=== PATIENT | male | born 1955 | race Caucasian/White ===

== ENCOUNTER → 2024-07-17 18:15 | Outpatient (REF) | payer MEDICARE, OTHER, SELFPAY | LOC: MRI 3T 18:15 | PROVIDERS: ATTENDING PHYSICIAN Urology; FAMILY PHYSICIAN Family Medicine | DX: R97.20 Elevated prostate specific antigen [PSA] (principal) | CPT/HCPCS: 72197; A9575 ==

== ENCOUNTER → 2024-07-19 13:05 | Outpatient (REF) | payer MEDICARE, OTHER, SELFPAY | LOC: CLAB 13:05 | PROVIDERS: ATTENDING PHYSICIAN Urology | DX: R97.20 Elevated prostate specific antigen [PSA] (principal) | CPT/HCPCS: 88305 ==

== ENCOUNTER 2024-08-04 12:43 | Inpatient (IN) | payer MEDICARE, OTHER, SELFPAY ==
[2024-08-04] VITALS (7 sets, daily range): BP systolic 74–141; BP diastolic 56–94; BMI 32.6
--- NOTE | 2024-08-04 07:47 | ED.GENMED ---
Addendum entered and electronically signed by Prince Joseph DO 08/04/24 09:27:
aed from police, looks like VF
Original Note:
History of Present Illness
<GÓMEZ Pa - Last Filed: 08/04/24 07:48>
General
Chief Complaint: CODE
Time Seen by Provider: 08/04/24 07:59
<Prince Joseph DO - Last Filed: 08/04/24 09:07>
General
Source: patient, ambulance crew and witness
Exam Limitations: clinical condition
Nursing documentation reviewed up to this point in time: agreed with
History of Present Illness
History of Present Illness:
Late entry seen immediately upon presentation
68-year-old male asthmatic diabetic from [facility] lives with a local family apparently had some jaw pain went to a family member who is an ICU nurse became diaphoretic had arrest, CPR started immediately EMS was called ACLS began apparently had
numerous rounds of epi shocks for VT magnesium for possible torsades
Brought to the ER with return of spontaneous circulation EKG showed artifact with lateral ST segment elevation STEMI alert was called
Review of Systems
<Prince Joseph DO - Last Filed: 08/04/24 09:07>
Review of Systems
Unable to obtain full review of systems at this time due to: intubated
Other source history: ambulance crew
All Other Systems: Not applicable
Phy Exam
<Prince Joseph DO - Last Filed: 08/04/24 09:07>
Physical Exam
Physical Exam:
Physical Exam
General: 68 male overbreathing ventilator
Neck: Pupils 2-3 of
Heart: Regular
Lungs: Equal breath
Abdomen: Soft
Neuro: Overbreathing ventilator not following commands
Skin: no rash
Psychiatric: Unable
Extremities: No edema
Course
<GÓMEZ Pa - Last Filed: 08/04/24 07:48>
Orders/Labs/Results
Orders:
Orders
08/04/24 07:43
EKG [Electrocardiogram (*1)] Stat
Reason for Study: Chest Pain
EKG- Treatment ONCE
08/04/24 07:46
Cardiac Monitoring- Treatment ONCE
IV Insert/Care/Rem.- Treatment PRN
O2 Therapy [RESP] Urgent
Titrate/Wean O2 to maintain O2 sat greater than (%): 93
Special Instructions: TO MAINTAIN CONTINUOUS O2 SATS >/= 93%
Pulse Ox/cont/shift [RESP] Urgent
Quantity: 1
Special Instructions: continuous pulse ox
08/04/24 07:48
Complete Blood Count/With Diff Urgent
Lactic Acid Stat
Comment: WITH 1ST SET OF BLOOD CULTURES,CANCEL 2ND LACTIC ACID IF FIRST <2
08/04/24 07:50
Aspirin 300 mg RECTAL NOW STA
08/04/24 07:52
CXR Port [CR Chest Portable - 1 View] Urgent
Comment:
Reason For Exam: cardiac arrest s/p intubation
Reason Study Needs to be Portable: Patient Unstable
08/04/24 07:54
CT Head W/o Iv Contrast Urgent
Comment:
Reason For Exam: code
Arterial Blood Gas Urgent
%Oxygen/Room Air: 100
08/04/24 07:57
Propofol 1,000,000 Mcg/100 ml [Diprivan] 1,000,000 mcg in 100 ml .ROUTE .STK-MED
08/04/24 08:00
Triglycerides Routine
Comment: baseline levels with propofol infusion
Amiodarone [Cordarone] 900 mg DEXTROSE 5% PVC-free BAG [D5W PVC-free BAG] 500 ml IV PER PROTOCOL
Initial Dose in mg/min:: 1
Duration of initial dose (hours):: 6
Subsequent dose in mg/min:: 0.5
Duration of subsequent dose (hours):: 18
Maximum dose in mg/min:: 1
Hold and notify provider if:: Heart rate < 60 BPM or SBP < 90 mmHg or MAP < 60 mmHg
Heparin 4,000 units IV NOW STA
Propofol 1,000,000 Mcg/100 ml [Diprivan] 1,000,000 mcg in 100 ml IV NOW
Indication:: Light Sedation
Begin Infusion:: Now
Goal:: RASS 0 to -2
Maximum dose in mcg/kg/min:: 50
Initial dose based on RASS:: Yes
If RASS is:: +1 or pt hemodynamically unstable (SBP < 90mmHg), initiate at 10 mcg/kg/min
If RASS is:: +2, initiate at 20 mcg/kg/min
If RASS is:: greater than or equal to +3, initiate at 30 mcg/kg/min
Titration Instructions:: Titrate by 5-10 mcg/kg/min every 5 minutes until RASS 0 to -2 achieved.
Taper Instructions:: If RASS is at or below goal for 4 consecutive hours decrease infusion by
Taper Instructions:: 5-10 mcg/kg/min every 2 hours to off.
Over-sedation Instructions:: If CPOT 0-2 (at goal) AND RASS -3 to -5 (below goal) decrease sedative by
Over-sedation Instructions:: 50% first. If pain score remains at goal and RASS remains below goal in
Over-sedation Instructions:: 1 hour, decrease opioid infusion by 50%.
Notify provider:: immediately if patient exhibits signs/symptoms of propofol-related
Notify provider:: infusion syndrome.
Additional Instructions:: Patient MUST be mechanically ventilated and MUST receive analgesia.
08/04/24 08:01
ABG [Arterial Blood Gas] Stat
%Oxygen/Room Air: 100
08/04/24 08:08
Comprehensive Metabolic Panel Urgent
NT-proBNP Urgent
Troponin I Urgent
08/04/24 08:20
Heparin 1000 Units/500 ml [Heparin] 1,000 units in 500 ml .ROUTE .STK-MED
Heparin Sodium,Porcine/Ns/Pf [Heparin 2000 Units/1000 ml] 2,000 unit in 1,000 ml .ROUTE .STK-MED
Lidocaine HCl/Pf [Xylocaine-Mpf 1% Vial] 50 mg .ROUTE .STK-MED ONE
Nitroglycerin [Tridil] 1,500 mcg .ROUTE .STK-MED ONE
Verapamil Injectable [Isoptin/Verapamil Injection] 5 mg .ROUTE .STK-MED ONE
08/04/24 08:27
Lidocaine Bolus 100 mg [Xylocaine Bolus 100 mg] 200 mg .ROUTE .STK-MED ONE
08/04/24 08:38
Propofol [Diprivan] 20 ml .ROUTE .STK-MED
08/05/24 08:00
Polyethylene Glycol Powder [Miralax] 17 grams TUBE DAILY
Abnormal Lab Results
08/04/24 08/04/24
07:47 07:48
Plt Count 112 L 10^3/uL
(130-400)
Abs Immat Gran (auto) 0.4 H 10^3/uL
(0-0.05)
Absolute Lymphs (auto) 5.0 H 10^3/uL
(1.2-3.4)
Immature Gran % 4.2 H %
(0-0.5)
Neutrophils % 28.8 L %
(42.2-75.2)
Lymphocytes % 59.8 H %
(20.5-51.1)
Lactic Acid 9.9 H* mmol/L
(0.7-2.0)
POC Glucose 266 H mg/dl
(70-99)
08/04/24 07:48
Vital Signs
Initial and Last Documented VS:
Initial Vital Signs
Pulse Resp BP
59 22 141/94
08/04/24 07:48 08/04/24 07:48 08/04/24 07:48
Last Documented Vital Signs
Temp Pulse Resp BP Pulse Ox
98.5 F 91 27 104/56 95
08/04/24 07:53 08/04/24 08:38 08/04/24 08:38 08/04/24 08:38 08/04/24 08:38
<Prince Joseph, - Last Filed: 08/04/24 09:07>
Orders/Labs/Results
Orders:
Orders
08/04/24 07:43
EKG [Electrocardiogram (*1)] Stat
Reason for Study: Chest Pain
EKG- Treatment ONCE
08/04/24 07:46
Cardiac Monitoring- Treatment ONCE
IV Insert/Care/Rem.- Treatment PRN
O2 Therapy [RESP] Urgent
Titrate/Wean O2 to maintain O2 sat greater than (%): 93
Special Instructions: TO MAINTAIN CONTINUOUS O2 SATS >/= 93%
Pulse Ox/cont/shift [RESP] Urgent
Quantity: 1
Special Instructions: continuous pulse ox
08/04/24 07:48
Complete Blood Count/With Diff Urgent
Lactic Acid Stat
Comment: WITH 1ST SET OF BLOOD CULTURES,CANCEL 2ND LACTIC ACID IF FIRST <2
08/04/24 07:50
Aspirin 300 mg RECTAL NOW STA
08/04/24 07:52
CXR Port [CR Chest Portable - 1 View] Urgent
Comment:
Reason For Exam: cardiac arrest s/p intubation
Reason Study Needs to be Portable: Patient Unstable
08/04/24 07:54
CT Head W/o Iv Contrast Urgent
Comment:
Reason For Exam: code
Arterial Blood Gas Urgent
%Oxygen/Room Air: 100
08/04/24 07:57
Propofol 1,000,000 Mcg/100 ml [Diprivan] 1,000,000 mcg in 100 ml .ROUTE .STK-MED
08/04/24 08:00
Triglycerides Routine
Comment: baseline levels with propofol infusion
Amiodarone [Cordarone] 900 mg DEXTROSE 5% PVC-free BAG [D5W PVC-free BAG] 500 ml IV PER PROTOCOL
Initial Dose in mg/min:: 1
Duration of initial dose (hours):: 6
Subsequent dose in mg/min:: 0.5
Duration of subsequent dose (hours):: 18
Maximum dose in mg/min:: 1
Hold and notify provider if:: Heart rate < 60 BPM or SBP < 90 mmHg or MAP < 60 mmHg
Heparin 4,000 units IV NOW STA
Propofol 1,000,000 Mcg/100 ml [Diprivan] 1,000,000 mcg in 100 ml IV NOW
Indication:: Light Sedation
Begin Infusion:: Now
Goal:: RASS 0 to -2
Maximum dose in mcg/kg/min:: 50
Initial dose based on RASS:: Yes
If RASS is:: +1 or pt hemodynamically unstable (SBP < 90mmHg), initiate at 10 mcg/kg/min
If RASS is:: +2, initiate at 20 mcg/kg/min
If RASS is:: greater than or equal to +3, initiate at 30 mcg/kg/min
Titration Instructions:: Titrate by 5-10 mcg/kg/min every 5 minutes until RASS 0 to -2 achieved.
Taper Instructions:: If RASS is at or below goal for 4 consecutive hours decrease infusion by
Taper Instructions:: 5-10 mcg/kg/min every 2 hours to off.
Over-sedation Instructions:: If CPOT 0-2 (at goal) AND RASS -3 to -5 (below goal) decrease sedative by
Over-sedation Instructions:: 50% first. If pain score remains at goal and RASS remains below goal in
Over-sedation Instructions:: 1 hour, decrease opioid infusion by 50%.
Notify provider:: immediately if patient exhibits signs/symptoms of propofol-related
Notify provider:: infusion syndrome.
Additional Instructions:: Patient MUST be mechanically ventilated and MUST receive analgesia.
08/04/24 08:01
ABG [Arterial Blood Gas] Stat
%Oxygen/Room Air: 100
08/04/24 08:08
Comprehensive Metabolic Panel Urgent
NT-proBNP Urgent
Troponin I Urgent
08/04/24 08:20
Heparin 1000 Units/500 ml [Heparin] 1,000 units in 500 ml .ROUTE .STK-MED
Heparin Sodium,Porcine/Ns/Pf [Heparin 2000 Units/1000 ml] 2,000 unit in 1,000 ml .ROUTE .STK-MED
Lidocaine HCl/Pf [Xylocaine-Mpf 1% Vial] 50 mg .ROUTE .STK-MED ONE
Nitroglycerin [Tridil] 1,500 mcg .ROUTE .STK-MED ONE
Verapamil Injectable [Isoptin/Verapamil Injection] 5 mg .ROUTE .STK-MED ONE
08/04/24 08:27
Lidocaine Bolus 100 mg [Xylocaine Bolus 100 mg] 200 mg .ROUTE .STK-MED ONE
08/04/24 08:38
Propofol [Diprivan] 20 ml .ROUTE .STK-MED
08/05/24 08:00
Polyethylene Glycol Powder [Miralax] 17 grams TUBE DAILY
Abnormal Lab Results
08/04/24 08/04/24
07:47 07:48
Plt Count 112 L 10^3/uL
(130-400)
Abs Immat Gran (auto) 0.4 H 10^3/uL
(0-0.05)
Absolute Lymphs (auto) 5.0 H 10^3/uL
(1.2-3.4)
Immature Gran % 4.2 H %
(0-0.5)
Neutrophils % 28.8 L %
(42.2-75.2)
Lymphocytes % 59.8 H %
(20.5-51.1)
Lactic Acid 9.9 H* mmol/L
(0.7-2.0)
POC Glucose 266 H mg/dl
(70-99)
08/04/24 07:48
Vital Signs
Initial and Last Documented VS:
Initial Vital Signs
Pulse Resp BP
59 22 141/94
08/04/24 07:48 08/04/24 07:48 08/04/24 07:48
Last Documented Vital Signs
Temp Pulse Resp BP Pulse Ox
98.5 F 91 27 104/56 95
08/04/24 07:53 08/04/24 08:38 08/04/24 08:38 08/04/24 08:38 08/04/24 08:38
<Prince Joseph, DO - Last Filed: 08/04/24 09:07>
MDM/Problems Addressed
Differential Diagnosis Includes:
STEMI with VT arrest primary arrhythmia VT scar thoracic dissection PE conceivable
MDM/Problems Addressed:
Cardiac arrest
Chronic conditions affecting care: DM and Asthma
Acute Exacerbation and/or Progression of Chronic Illness: DM and Asthma
<Prince Joseph, DO - Last Filed: 08/04/24 09:07>
*Radiology
Radiology exam reviewed: preliminary read by ED provider and radiology read reviewed (too deep)
*Pulse Oximetry
Patient hypoxic: no
*EKG
Interpreted by ED Provider?: Yes
Interpretation: abnormal
Comparison EKG: no comparison EKG present
Heart Rate: 78
Rate: normal
Rhythm: sinus
Ischemia: ST elevation
*Tobacco Checkout Clerk Interpretation
Rate: normal
Interpretation: normal
Heart Rate: 78
Rhythm: sinus
*Critical Care Note
Total Time (30-74mins, 75-104mins- exclusive of procedures): 76
Data Reviewed
Source: family and ambulance crew
Prescriptions/Medications Considered But Not Given:
tnk
Further Testing Considered But Not Given:
echo
<Prince Joseph DO - Last Filed: 08/04/24 09:07>
Update Note
Update Note:
CRITICAL CARE STATEMENT: A total of 76 minutes of critical care time was provided for this patient. This includes management of unstable vital signs, evaluation of the patient at bedside, reviewing the patient's pertinent medical records discussion
with EMS providers and patient's family in addition to discussion with consultants, review of old EKGs and review of pertinent medical records. This time with separate from time utilized to perform the aforementioned documented procedures
Numerous reevaluations cardiology interventional cardiology, CT surgery at bedside, venous and arterial access obtained, was defibrillated a few times, started on pressors and antiarrhythmics, went to CT scan,
Family updated, patient to Rn Staff in critical condition he did appear to be moving all extremities prior to leaving the ER
ED Attending Note
<GMÓEZ Pa - Last Filed: 08/04/24 07:48>
-
Portions of this chart may have been created with voice recognition software.� Occasional wrong word or��sound alike� substitutions may have occurred due to the inherent limitations of voice recognition software.
Discharge Plan
Departure
Patient Disposition: Admit
Date of Disposition: 08/04/24
Time of Disposition: 08:43
Admit to: labeling machine operator
Presentation/result/management discussed w/ accepting MD/DO: cardiology/icu/Ct surgery
Patient with high blood pressure during this ER visit?: No
Condition: Critical
Covid-19: Not Applicable
Discharge Problem:
Cardiac arrest
Prescriptions:
No Action
Ozempic
SC WEEKLY
enalapril maleate
PO
hydrochlorothiazide
PO
Referrals:
UNKNOWN - PT NOT,INTERVIEWE [Family Provider] -
Discharge Date and Time
Print Language: MALAY
[2024-08-04 07:48] LABS: Glucose - Point of Care 266 mg/dl (70-99)
[2024-08-04] MEDS: ASPIRIN 300 MG RECTAL (07:51)
[2024-08-04 08:06] LABS: Hematocrit 48.5 % (39.0-52.0); Hemoglobin 16.2 g/dL (13.0-18.0); Mean Corp Hgb Conc. 33.4 g/dL (33.0-37.0); Mean Corpuscular Hgb 29.4 pg (27.0-31.0); Red Blood Cell Count 5.51 10^6/uL (4.70-6.10); Red Cell Dist. Width 14.3 % (11.5-14.5); White Blood Cell Count 8.4 10^3/uL (4.8-10.8)
[2024-08-04] MEDS: CORDARONE 518 MG IV (08:09)
[2024-08-04] MEDS: DIPRIVAN 100 IV ×2 (08:10→15:23)
[2024-08-04 08:17] LABS: Lactic Acid 9.9 mmol/L (0.7-2.0)
[2024-08-04 08:39] LABS: % Basophils 0.4 % (0-2); % Eosinophils 2.6 % (0-6); % Immature Granulocytes 4.2 % (0-0.5); % Lymphocytes 59.8 % (20.5-51.1); % Monocytes 4.2 % (1.7-9.3); % Neutrophils 28.8 % (42.2-75.2); Absolute Eosinophils 0.2 10^3/uL (0-0.7); Absolute Immature Granulocytes 0.4 10^3/uL (0-0.05); Absolute Monocytes 0.4 10^3/uL (0.1-0.6); Absolute Neutrophils 2.4 10^3/uL (1.4-6.5); Mean Platelet Volume 10.3 fL (7.4-10.4); Nucleated Red Blood Cells % 0.4 % (-); Platelet Count 112 10^3/uL (130-400)
--- NOTE | 2024-08-04 08:46 | CON.CAR ---
Addendum entered and electronically signed by Wade Recinos MD 08/04/24 12:14:
Labs reviewed with initial creatinine of 1.7 as well as a lactic acid of 3.3 and a troponin of 2.6. His potassium was also noted to be 3.3. Will have to follow his urine output closely and consider Arndt catheter to monitor urine output and will
order labs for the morning and for 4:00 this afternoon. Given his baseline renal insufficiency as well as receiving intravenous dye for his LAD stent and obtuse marginal stent I did speak with Dr. Delgadillo from nephrology and asked him to consult on Mr.
Keeping to help guide us with management. Obviously has consultants we will defer to critical care medicine and internal medicine regarding his overall care and management. We will follow closely with you. Hopefully with perfusion restored and
Impella support we can follow urine output and he will have stable renal function. Also discussed findings from the interventional procedure with critical care and they will assist us in managing his ventilatory dependence.
Addendum entered and electronically signed by Wade Recinos MD 08/04/24 11:55:
Discussed interventional findings with Dr. Besaley. He had a flush occlusion of the LAD in its midportion right at the takeoff of multiple septal branches. He also had a subtotal occlusion of a moderate-sized obtuse marginal. Reviewed the V.-Gram
findings as well with IC. Status post stenting to the LAD and the obtuse marginal and given relative hypotension post stenting there will be consideration of Impella support for period of time plus stenting. He is now electrically stable.
Original Note:
Consultation
Consultation Request
Date/Time Consultation Requested: August 04, 2024
Date/Time Consultation Performed: August 04, 2024
Requesting Provider: Jorje
Performing Provider: Opal
Reason for Consultation: Cardiac arrest
Medical History
-
Chief Complaint: Cardiac arrest
History of Present Illness:
68-year-old male who was met in the trauma bay in the middle of cardiac arrest. He had ventricular fibrillation x 2 with congregation of sinus rhythm and spontaneous circulation. I met him when he was intubated and sedated. I did meet his 2 family
friends in the trauma bay. History is limited. ECG demonstrates underlying atrial fibrillation with wide QRS and nonspecific ST-T changes and it is unclear whether he was having chest related symptoms. His rhythm has quieted on IV amiodarone and
IV lidocaine with 2 sequential boluses of lidocaine with a blood pressure of 89/46 on dopamine to 15. I was also met at the bedside with Dr. Foster and Dr. Hendricks who are placing venous and arterial access in the right femoral vein and left femoral
artery under ultrasound guidance. I discussed with Dr. Foster transfer to the cardiac catheterization lab to define the coronary anatomy. He was overbreathing the vent although it is unclear what his mental status is at the time of evaluation.
Past Medical History
Past Medical History: Arrhythmias and CAD
Social History
Tobacco: Smoker
Alcohol: None
Drug: Other
Personal: Other
Living: With Family
Employment: Other
Family History
Family History: Reviewed & Not Pertinent
Allergies / Home Medications
Allergy/AdvReac Type Severity Reaction Status Date / Time
No Known Allergies Allergy Unverified 08/04/24 07:53
�Medication �Instructions �Recorded �Confirmed �Type
Ozempic units SC WEEKLY 08/04/24 History
enalapril maleate PO 08/04/24 History
hydrochlorothiazide mg PO 08/04/24 History
Review of Systems
-
Unable to obtain full review of systems at this time due to: Patient Intubation
Physical Exam
Vital Signs
Temp Pulse Resp BP Pulse Ox
98.5 F 91 27 104/56 95
08/04/24 07:53 08/04/24 08:38 08/04/24 08:38 08/04/24 08:38 08/04/24 08:38
Lab Results
08/04/24 07:48
Troponin I Cancelled 08/04/24 07:48
[id number] Pept Cancelled 08/04/24 07:48
Physical Exam
General: Well Developed and Well Nourished
HEENT: Normocephalic
Respiratory: Crackles
Cardiac: Irregular Rhythm
Breast: Deferred by me
GI: Soft and Non Tender
Rectal: Deferred by Provider
Musculoskeletal: No Clubbing and No Cyanosis
Skin: Warm and Dry
Neuro: Other
Hematologic/Lymphatic: No Lymphadenopathy
Psych: Other
Impression / Plan
-
Impression:
Cardiac arrest
Ventricular fibrillation
IVCD on ECG
Underlying atrial fibrillation on telemetry
Presumed myocardial infarction with ST-T changes inferolaterally although in the setting of a wide QRS
Intubated
Sedated
History of hypertension
History of Ozempic therapy
Recommendations:
Discussed with his family friends at bedside and with the responding team the need for immediate evaluation of his coronary anatomy. He does have a heart rate in the 90s to 100s on IV amiodarone and IV lidocaine with a stable blood pressure on
dopamine and as such I felt stable to move to the cardiac catheterization suite for evaluation of his anatomy. His neurostatus is unclear and I will have to find out his downtime with regards to consideration for cooling protocol.
Further plan to be delineated pending coronary findings. If indeed his ventricular fibrillation is in the setting of coronary occlusion goal would be to restore spontaneous circulation of the coronary artery soon as possible and Dr. Foster is at
the bedside and taken the patient to cardiac catheterization laboratory.
Data Reviewed
-
EKG: Tracing Personally Visualized and interpreted
Labs: Labs Reviewed by me
Critical Care Time (in minutes): 45 minutes of critical care time were spent in the trauma bay in the emerge
[2024-08-04 10:05] LABS: B.E. -10.3 mmol/L; HCO3 18.3 mmol/L (21-28); PCO2 49 mmHg (35-48); PO2 144 mmHg (83-108)
[2024-08-04 10:07] LABS: O2 Therapy AC18/500/100%/+5
[2024-08-04 10:09] LABS: pH 7.18 (7.35-7.45)
[2024-08-04 10:29] LABS: Blood Urea Nitrogen 29 mg/dl (9-20); Calcium 8.6 mg/dl (8.4-10.2); Carbon Dioxide 15 mmol/L (22-30); Chloride 96 mmol/L (98-107); Estimated Creatinine Clearance 51 ml/min; Glucose 377 mg/dl (70-99); Sodium 135 mmol/L (135-145); eGFR 43.64
[2024-08-04 10:49] LABS: Potassium 3.3 mmol/L (3.5-5.1)
[2024-08-04 10:51] LABS: NT-proBNP 192 pg/ml
--- NOTE | 2024-08-04 11:35 | CONSULT.CT ---
Consultation
-
Requesting Provider: Eduardo Foster MD
Performing Provider: Javier Patiño PA-C
Reason for Consultation: Cardiac arrest, consider ECMO if needed
Patient History
History of Present Illness
This is a 68-year-old male with limited past medical history available who was found down in ventricular fibrillation outside of the hospital. Unknown downtime. Defibrillation x 2 as well as ACLS protocols achieved ROSC however during this time we
were mobilized in the event that ECMO support would be needed to stabilize the patient. Patient remained unstable on pressor support. There was evidence of a lateral STEMI on EKG. Venous and arterial sheaths were placed under ultrasound guidance
in the emergency department by our team in conjunction with cardiology. Decision was made to emergently transport the patient to the [facility] for evaluation of his coronary anatomy. We were asked to remain on standby for possible mechanical
circulatory support in the event of another cardiac arrest. It is unknown what the patient's prior mental status was however he does move all extremities when sedation was lightened. There is ongoing consideration for possible therapeutic
hypothermia.
Past Medical History
Unknown. Patient intubated and sedated at the time my evaluation
Past Surgical History
Unknown patient intubated and sedated at the time my evaluation
Allergies
Allergy/AdvReac Type Severity Reaction Status Date / Time
No Known Allergies Allergy Unverified 08/04/24 07:53
Home Medications
�Medication �Instructions �Recorded �Confirmed �Type
Ozempic units SC WEEKLY 08/04/24 History
enalapril maleate PO 08/04/24 History
hydrochlorothiazide mg PO 08/04/24 History
Review of Systems
-
Unable to obtain full review of systems at this time due to: Patient Intubation
Physical Exam
Vital Signs
Temp 98.5 F 08/04/24 07:53
Temp route: Rectal 08/04/24 07:53
Pulse 91 08/04/24 08:38
Resp Rate 27 08/04/24 08:38
Blood pressure 104/56 08/04/24 08:38
Blood pressure extremity used: Right upper arm 08/04/24 07:48
Position: Lying 08/04/24 08:38
SaO2 95 08/04/24 08:38
Oxygen Mode of Delivery Ventilator 08/04/24 07:42
% Oxygen delivered 100 08/04/24 07:42
Actual Weight 103.1 kg 08/04/24 07:53
Body Mass Index (BMI) 32.6 08/04/24 07:53
Labs
08/04/24 07:48
08/04/24 10:40
Troponin I 2.660 ng/ml H* 08/04/24 09:43
Eps-M-Lchncedoqwa Pept 192 pg/ml 08/04/24 09:43
Arterial Blood Gases
pH 7.18 (7.35-7.45) L* 08/04/24 09:43
pCO2 49 mmHg (35-48) H 08/04/24 09:43
pO2 144 mmHg (83-108) H 08/04/24 09:43
HCO3 18.3 mmol/L (21-28) L 08/04/24 09:43
Base Excess -10.3 mmol/L 08/04/24 09:43
ABG O2 Sat (Measured) 100.0 % (94-98) H 08/04/24 09:43
O2 Delivery Level Ac18/500/100%/+5 08/04/24 09:43
Exam
General: Well Developed, Well Nourished and Intubated
HEENT: Normocephalic and Anicteric
Skin: Warm and Dry
Neuro: Other (Unable to fully assess given acute event and intubation however the patient did move all 4 extremities when sedation was lightened)
Psych: Agitated
Assessment / Plan
-
Patient is status post ventricular fibrillation cardiac arrest. Unknown downtime. ROSC was achieved however the patient remains hemodynamically unstable with evidence of lateral STEMI on EKG. The plan is to transfer the patient to the [facility]
emergently for evaluation of his coronary anatomy and possible intervention. Given the hemodynamic instability the patient we were mobilized to assist and provide mechanical circulatory support in the event that it would be required. At this time
the patient remains unstable on pressor support however he does have a perfusing rhythm. We will be on standby should our services be needed as the STEMI team treats the patient.
Remainder medical management per primary team. Case was discussed in detail with the attending surgeon who provide any additional changes to our assessment and plan in the form of an addendum.
If mechanical circulatory support is not required after intervention we will sign off and be available as needed.
Data Reviewed
-
[facility]: Image Personally Visualized and interpreted
Total Time Spent with Patient (in minutes): 75
[2024-08-04 12:05] LABS: Lactic Acid 3.3 mmol/L (0.7-2.0)
--- NOTE | 2024-08-04 12:25 | HPS.HSE ---
Family Physician
-
Family Physician: INTERVIEWE UNKNOWN - PT NOT
Chief Complaint
-
cardiac arrest
History of Present Illness
68-year-old male currently seen in ICU status post cardiac catheterization status post intubation on mechanical ventilation. History obtained from records and in discussion with intervention cardiology. Patient had jaw pain earlier and went to see
family friend. Patient with cardiac arrest and CPR was started. EMS was called. EMS strip noted. Found to have V-fib status post shock with tenriism of spontaneous circulation. Patient was intubated and sedated. Patient was evaluated by
ceramic chemist in ER and found to be in atrial fibrillation and was started on IV amiodarone and also received lidocaine. Patient was also started on dopamine in the ER. Patient underwent to the cardiac catheterization where he was found to
have obtuse marginal and LAD occlusion status post stent placement. Patient had a brief PEA arrest in the cardiac catheterization lab status post 1 dose of epi and chest compression leading to ROSC achievement. Impella catheter was placed in the
[facility] [employer]. Patient was seen postcardiac catheterization and post cardiac arrest in the ICU
Medical History
Past Medical History
Past Medical History: Reports Other
Additional Past Medical History:
Primary hypertension
History of TIA 2009
S/p TIA 2009
History of back fracture
Diabetes mellitus type 2
Past Surgical History: Reports Other
Additional Past Surgical History:
Appendectomy
Tonsillectomy
Mohs surgery
Social History
Tobacco: Smoker ( Smoked for 20 years.)
Family History
Family History: CAD (father ) and Cancer (breast mother )
Allergies / Home Medications
Allergies reflects when Allergies were last updated in [facility].
Home Medications with original date entered in [facility]
Allergy/Medication List:
Medications on admission are unable to be verified or confirmed at this time.
Review of Systems
-
Unable to obtain full review of systems at this time due to: Patient Intubation
Physical Exam
Vital Signs
Vital Signs
Temp Pulse Resp BP Pulse Ox
98.5 F 91 27 104/56 95
08/04/24 07:53 08/04/24 08:38 08/04/24 08:38 08/04/24 08:38 08/04/24 08:38
Physical Exam
General: Well Developed, Well Nourished and Obese
HEENT: NormoCephalic, Moist mucous membranes, Atraumatic, Nose Appears Normal, Ears Appear Normal and Oxygen (ett on ventilation)
Respiratory: Non Labored Respirations; No Accessory Resp Muscle Use
Cardiac: S1/S2
GI: Soft and Non Distended
Rectal: Deferred by Provider
Genito-urinary: Arndt
Musculoskeletal: Other (Bilateral groin line access noted)
Neuro: Sedated
Laboratory Results
-
08/04/24 07:48
Laboratory Results
pH 7.18 (7.35-7.45) L* 08/04/24 09:43
pCO2 49 mmHg (35-48) H 08/04/24 09:43
pO2 144 mmHg (83-108) H 08/04/24 09:43
HCO3 18.3 mmol/L (21-28) L 08/04/24 09:43
Lactic Acid 3.3 mmol/L (0.7-2.0) H 08/04/24 11:38
Total Bilirubin Cancelled 08/04/24 09:43
AST Cancelled 08/04/24 09:43
ALT Cancelled 08/04/24 09:43
Alkaline Phosphatase Cancelled 08/04/24 09:43
Troponin I 2.660 ng/ml H* 08/04/24 09:43
Impression/Plan
-
Impression
STEMI status post stent to LAD and obtuse marginal
Ventricular fibrillation status post ROSC
Acute hypoxic respiratory failure status post mechanical ventilation and intubation
Elevated troponin
Elevated creatinine unclear if MARY versus CKD
Hypokalemia
Mixed Respiratory and Metabolic acidosis
Lactic acidosis status postcardiac arrest
Leukocytosis likely reactive
Primary hypertension
Diabetes mellitus
Elevated PSA
Hx of asthma
Hx of TIA
Plan
s/p rectal aspirin.
Once OG tube establishment start patient on Brilinta and po aspirin
Further anticoagulation will be deferred to interventional cardiology
started on IV lidocaine/amiodarone per cardiology
Start patient on IV fluids-receiving it now
Check A1c
Check lipid panel
Trend lactic acid
Impella management per cardiology
Start pressors as required for pressure support
Cooling protocol if appropriate per cardiology and professor of forest planning. Patient temp already at 94.8 and moving all [address] head No acute intracranial hemorrhage. There is an apparent hypodensity in the anterior inferior left frontal lobe which may represent ischemia/infarction. Consider MRI for further evaluation if the patient is able to tolerate.
Monitor mentation closely for any neurological deficit.
Ventilation and sedation per professor of forest planning. Avoid oversedation.
Chest x-ray noted and ET tube probably needs to be pulled back. Repeat CXR pending.
ABG with improvement in ph.
Echocardiogram pending
Critical care Insulin glycemic protocol
If intubation prolonged start patient on tube feeding
Repeat labs and replete electrolytes
If spikes fevers check blood culture, ua and start broad spectrum antibiotics vancomycin/zosyn.
DVT prophylaxis lovenox
Full code
d/w interventional cardiology
Prognosis poor as patient with prolonged cardiac arrest downtime.
Total Critical Care Time_ 45 minutes. I was immediately available to the patient and staff. I personally examined, reviewed labs, diagnostic images/reports, interpretations, treatment plans, discussed patient care with other providers and family
or caregivers (if patient is unable to make decisions), entered orders as appropriate and documented the medical record.
--- NOTE | 2024-08-04 12:39 | ITS.CL.PN ---
Photo Studio Assistant - Procedure Note
Procedure
Procedure Note:
CARDIAC CATHETERIZATION REPORT
Date of Procedure: 08/04/24
Referring: Dr. Wade Recinos
Indication: STEMI, cardiogenic shock
PROCEDURES:
1. Left heart catheterization
2. Coronary angiography
3. PCI for acute HI with DESx2 to LCx
4. IVUS of LCx
5. PCI for acute HI with BRITTNI to LAD
6. IVUS of LAD
7. Right heart catheterization
8. Impella placement
9. ACLS
ACCESS:
6 [place] right radial artery (cath access), closed with TR band
14 [place] left femoral artery (Impella sheath)
18 gauge left radial (Jessica)
7 [place] right internal jugular vein (swan)
7 [place] right femoral vein (existing from ED)
CATHETERS:
1. 6 [place] Jasper-Raymundo
2. 6 [place] JR4 diagnostic
3. 6 [place] XB3.5 guide
4. 6 [place] Pigtail
HEMODYNAMIC DATA
LV 86/14 (EDP 20) mmHg
AO 75/56 (mean 62) mmHg
RA 9 mmHg
RV 30/8 (EDP 10) mmHg
PA 29/16 (mean 21) mmHg
PCWP 11 mmHg
CO/CI 5.15/2.33 L/min/m2
SVR 824 dsc*-5
PVR 1.9 Wood units
LEFT VENTRICULOGRAPHY: apical hypokinesis, grossly normal LVEF
CORONARY ANGIOGRAPHY
Dominance: right
Left Main: short, normal
LAD: gives rise to a small D1 and large D2. There is a 100% occlusion of the continuation of the LAD just after D2.
Circumflex: large vessel giving rise to a moderate caliber branching OM1, large OM2, and moderate caliber LPL branch. There are serial high grade stenoses in the proximal portion of OM1 and the larger branch of OM1 with MANASA 2 flow distally.
RCA: large vessel giving rise to several marginal branches, a moderate caliber RPDA, and small RPL system. There is mild non-obstructive CAD.
INTERVENTIONS - IVUS-guided PCI to OM1; IVUS guided PCI to LAD, Impella placement
Given lateral ST change on EKG and lack of clear anterior predominant RWMA on ventriculogram, decision was made to proceed with PCI of both the OM1 and LAD as presumed culprit vessels. P2Y12 had not been given and there was no available oral access
so Integrilin bolus and drip was begun. The left main was engaged with a 6 [place] XB3.5 guide catheter. A Runthrough wire would not easily pass into the occluded branch of the OM1 so a Wholey wire was advanced without difficulty with the Runthrough
placed for protection in the smaller branch. Initial lesion preparation was performed with a 2.0x12 balloon with full expansion. IVUS was performed demonstrating a 2.5 mm distal vessel and 3.0 mm proximal vessel with mild calcification. The lesion
was stented with a 2.5x26 mm [place] Colt BRITTNI back to the OM1 ostium. Angiography demonstrated further obstructive disease distal to the stent which did not improve with IC nitroglycerin. A second 2.25x12 mm [place] Colt BRITTNI was overlapped
distally with excellent angiographic result. Repeat IVUS demonstrated mild undersizing proximally, which now appeared to be a 3.25 vessel proximally after religious of distal flow. The mid portion and overlap of the stents was post-dilated with a
2.5 mm NC to high pressure and the proximal portion of the stent post-dilated with a 3.25x12 mm NC to high pressure. Final angiographic result was excellent without complication. There was mild pinching of the small jailed side branch but MANASA 3
flow. Final IVUS demonstrated excellent apposition and expansion without edge dissection. We then turned our attention to the LAD. The Whisper wire was placed in the distal LAD and the Runthrough wire placed for protection in the large diagonal.
Initial lesion preparation was performed with the 2.0 balloon with religious of flow to the distal LAD which was a large vessel. IVUS was performed demonstrating a 3.5 mm reference vessel in the mid-LAD with significant disease back to the
bifurcation with the large D2 and a 5.0 mm reference diameter in the proximal LAD. There was a short segment of concentric calcification just distal to the bifurcation. Thus, 'nailing' the ostium was not felt to be easily accomplished so provision
bifurcation stenting was planned. To ensure stent expansion, further lesion preparation was performed with a 3.5 mm NC balloon taken serially to high pressure with full expansion. The lesion was stented with a 3.5x38 mm BRITTNI. Angiography demonstrated
good flow in the diagonal branch so the protection wire was removed and rewired through stent struts. There was suggestion of distal stent edge stenosis. POT was then performed with a 5.0 mm NC taken to high to nominal pressure. Angiography
demonstrated excellent side branch flow so the protection wire was removed. IVUS was performed and demonstrated full stent apposition and expansion throughout, with distal stent edge without dissection and in an area of minimal disease, with mild
disease more distal to the stent edge. Thus, no further distal stenting was performed. The proximal edge was well sized without dissection. The wires and guide were then removed and a TR band placed. Right heart catheterization was performed via the
right internal jugular vein with hemodynamics demonstrating normal filling pressure and mildly reduced cardiac index (CI 2.3) on dobutamine 15. Blood pressure remained ~70s/50s. Given anterior infarct with ongoing shock, an Impella was placed
thorough an existing left femoral artery access point after verifying PHYSICAL PLANT MANAGER stick site with ultrasound. The peal away sheath was removed and replaced with the inline sheath which was sutured in place. Fluoroscopy was used to confirm appropriate
placement. The Impella was set to P7 with improvement in MAP and reduced pulse pressure. A left radial arterial line was placed for monitoring. The right femoral venous line (placed in the ED) was left in place for access. This concluded the case
and the patient was prepared for transport.
INTERVENTIONS - ACLS for PEA arrest
During preparation of the patient was transportation, dopamine was briefly held and within minutes the patient became profoundly hypotensive with MAP 30s and no pulsatility on Impella or left radial Egan. CPR was initiated and 1 mg epi given. The
patient quickly regained ROSC with hypertensive blood pressure. Impella position was confirmed on fluoroscopy. Emergent bedside ultrasound demonstrated no effusion and EF ~40% with LAD territory RWMA. There were no rhythm changes or ST changes on
the monitor. Labs were sent to rule out metabolic causes. The patient remained stable now back on dopamine 15 and was transported to the ICU.
Closure Device: TR band
Radiation dose (mGy): 2985
DAP (cm2.Gy): 221.5
Fluoroscopy time (minutes): 33.8
CONCLUSIONS:
1. Two vessel coronary artery disease in setting of out of hospital witnessed VT/VF arrest with immediate CPR and inferolateral ST changes on ECG
2. Normal LV filling pressure and no aortic stenosis on angiographic pullback
3. Successful IVUS-guided PCI to the OM1 with placement of overlapping 2.5x22 and 2.25x12 mm [place] Colt BRITTNI post-dilated with a 3.25 mm balloon proximally
4. Successful IVUS-guided PCI of the mid-LAD with placement of a 3.5x38 mm Art[place] Colt BRITTNI post-dilated proximally with a 5.0 NC balloon
5. Right heart catheterization with normal filling pressure and mildly reduced cardiac index on 15 dopamine
6. Impella placement via the left common femoral artery
7. Post-procedure PEA arrest possibly in setting of inadequate/interrupted inotropic support successfully rescued with ACLS
RECOMMENDATIONS:
1. TR band management of right radial access site
2. Continue Integrilin until one hour after able to give oral ticagrelor 180 mg load and continue ticag 180 BID and ASA 81
3. ATN prevention with 1.5 L fluid over 6 hours, additional fluid PRN to achieve PCWP >12
4. Heparin per Impella protocol once Integrilin is off.
5. High intensity statin pending LFT improvement.
6. GDMT pending resolution of shock.
7. Inotropic support with Impella and dobutamine titrated to goal CI>2
8. Vasopressor support with norepi titrated to MAP>65
9. Trend CMP, lactate, urine output to monitor shock state.
10. Trend hemolysis labs daily (CBC, LHD, coags)
11. Cont. lido drip at 1, discontinue amio and restart only if recurrent ventricular arrhythmias
12. Vent management per ICU team
13. Will continue to monitor for improvement in shock to guide de-escalation of Impella, likely will rest on Impella for at least 24-48 hours
14. If patient has recurrent cardiac arrest, will upgrade to ECMO
Note: Additional critical care time: 45 minutes of critical care time were spent managing the patient's cardiac arrest (as described above) in the labor and delivery registered nurse subsequent to the conclusion of the case. This time was in addition to any time spent
performing separately billable procedures from the same day.
Signed: Nasir Beasley MD, PhD
--- NOTE | 2024-08-04 13:07 | W.PN.UPDATE ---
Update Note
Progress Note Update
The patient had transient PEA arrest after getting ready for transport which responded to CPR and epinephrine. Blood pressure restored and dopamine infusion noted. We performed 'quick look' echo at bedside (images not saved) with EF-40-45% with
regional wall motion abnormality without pericardial effusion and impella and PA-catheter in place at echo. No significant arrhythmias noted. Will continue lidocaine. Will defer to Dr. Beasley and Critical care team regarding whether they cool
patient. Discussed with Dr. Beasley at the bedside in label drier 1 that if we continue to note ongoing hypotension despite impella support that ECMO may need to be considered and he will discuss with Ct surgery. Also sending ABG and labs to rule out
other reversible causes of PEA arrest.
120 minutes critical care time to date.
[2024-08-04 13:13] LABS: B.E. -5.3 mmol/L; HCO3 23.1 mmol/L (21-28); PCO2 54 mmHg (35-48); PO2 128 mmHg (83-108); pH 7.24 (7.35-7.45)
[2024-08-04 13:17] LABS: Hematocrit 49.8 % (39.0-52.0); Hemoglobin 17.4 g/dL (13.0-18.0); Mean Corp Hgb Conc. 34.9 g/dL (33.0-37.0); Mean Corpuscular Hgb 28.5 pg (27.0-31.0); Mean Corpuscular Volume 81.5 fL (80.0-94.0); Platelet Count 283 10^3/uL (130-400); Red Blood Cell Count 6.11 10^6/uL (4.70-6.10); Red Cell Dist. Width 14.3 % (11.5-14.5); White Blood Cell Count 32.3 10^3/uL (4.8-10.8)
--- NOTE | 2024-08-04 13:20 | PTCARENOTE ---
Pt received from medical laboratory scientist. Pt intubated and sedated. 7.5 ETT, RT at bedside to pull out ETT to 24cm at the lip. AC 100% 24 500 5. Pt occasionally breathing over the vent. POX 98%. Sedated with propofol gtt. Pupils reactive to light, 4mm brisk,
however not completely round. With stimulation, pt moves all 4 extremities. Asked patient to open his eyes, an it appeared that he attempted to, but unable to complete the full opening of eyes. SR with RBBB on tele with frequent PACs and PVCs with
rates in the 70s-90s. BP supported with several gtts-see worklist. Bilateral radial pulses palpable. Bilateral PT pulses present via doppler. No edema noted. Impella in place to Left femoral artery to 92cm at P9 on arrival, down to P6 by Dr. Beasley
for suction alarms. CI 1.14. PA pressures 30s/10s. CVP 8. Abdomen soft, round, obese. +BS. OG placed to 55cm per verbal order. Arndt catheter placed for critical care i/o draining shawn urine at first, then transitioning to dark purple urine with
sediment. Small abrasion to right lateral ankle, FOURTH MATE, bleeding. Lower lip bleeding-gauze placed. Right IJ cordis with swan floated to 50cm, non locking swan, secured with tape. Dressing bloody, changed. Dr. Beasley at bedside to refloat swan, to
53cm. Right femoral venous sheath infusing meds and KVO-oozy, dressing changed. Left femoral Impella site dressing CDI. Left AC 18g PIV intact. Left radial jessica intact with appropriate waveform. All lines flushed, leveled, and zeroed. Jessica
dressing oozy. Right radial cath site with TR band intact, see worklist. Post cath CXR, echo, and EKG completed. Dr. Hendricks, CT CLOVIS Lorenz, Dr. Beasley, Dr. Delgadillo, Dr. Ivey, and Dr. Dawn at bedside to evaluate patient
[2024-08-04 13:21] LABS: INR 1.29; PT 15.9 Sec (11.4-14.6)
[2024-08-04 13:22] LABS: APTT 76.3 Sec (23.4-35.0)
[2024-08-04] MEDS: SUBLIMAZE 50 MCG IV ×4 (13:45→16:49)
[2024-08-04 13:46] LABS: Glucose - Point of Care 273 mg/dl (70-99)
[2024-08-04 13:51] LABS: Lactic Acid 4.6 mmol/L (0.7-2.0)
[2024-08-04 14:04] LABS: % Basophils 0.3 % (0-2); % Eosinophils 0.4 % (0-6); % Lymphocytes 6.2 % (20.5-51.1); % Monocytes 5.5 % (1.7-9.3); % Neutrophils 85.6 % (42.2-75.2); Absolute Basophils 0.1 10^3/uL (0-0.2); Absolute Eosinophils 0.1 10^3/uL (0-0.7); Absolute Immature Granulocytes 0.6 10^3/uL (0-0.05); Absolute Monocytes 1.8 10^3/uL (0.1-0.6); Absolute Neutrophils 27.6 10^3/uL (1.4-6.5); Nucleated Red Blood Cells % 0 % (-)
--- NOTE | 2024-08-04 14:19 | W.CON.NEPH ---
Consultation
-
Date/Time Consultation Requested: 08/04/2024 1 PM
Date/Time Consultation Performed: 08/04/2024 2:20 PM
Requesting Provider: Dr. Recinos
Performing Provider: Dr. Delgadillo
Reason for Consultation: MARY
Medical History
-
Chief Complaint: V-fib arrest
History of Present Illness:
This is a 68-year-old gentleman with hypertension on a multidrug regimen, Diazemuls type II on Mounjaro therapy, recently diagnosed low-grade prostate cancer on biopsy. Reportedly he had developed some jaw pain and then became diaphoretic and
arrested. CPS was started and EMS was called. He was noted to be in V-fib. He was brought to the emergency room with return of spontaneous circulation but with acute STEMI. He was then taken to the Poultry Offal Worker given cardiac instability. Stents
were placed in the LAD and obtuse marginal. An Impella device was placed as well. He required pressors to maintain perfusion. Creatinine was noted to be 1.7, up from his baseline of 0.7 representing acute kidney injury. He also had lactic
acidosis. He is currently in the CVICU, critically ill on the ventilator and sedated.
Past Medical History
Hypertension
Diabetes mellitus type 2
Prostate cancer low-grade
Herpes zoster
TIA, 2009
Back fractures
Asthma
Appendectomy
Tonsillectomy
Mohs surgery left leg
CKD 2
Social History
Tobacco: Former Smoker
Alcohol: Other
Family History
Breast cancer in mother, heart failure in father, no CKD
Allergies / Home Medications
Allergy/AdvReac Type Severity Reaction Status Date / Time
No Known Allergies Allergy Unverified 08/04/24 07:53
�Medication �Instructions �Recorded �Confirmed �Type
Ozempic units SC WEEKLY 08/04/24 History
enalapril maleate PO 08/04/24 History
hydrochlorothiazide mg PO 08/04/24 History
MEDICATIONS FROM [facility] 05/2024
Albuterol as needed
HCTZ 25 mg daily
Metoprolol succinate 50 mg daily
Mounjaro 5 mg weekly
Ramipril 20 mg daily
Zolpidem 10 mg as needed
Valacyclovir 1 g twice daily prn
Review of Systems
-
Sedated and intubated
Unable to obtain full review of systems at this time due to: Patient Intubation and Patient Non Verbal
Physical Exam
Vital Signs
Vital Signs
Temp Pulse Resp BP Pulse Ox
98.5 F 97 22 104/56 98
08/04/24 07:53 08/04/24 14:10 08/04/24 14:10 08/04/24 08:38 08/04/24 14:10
Lab Results
WBC 32.3 10^3/uL (4.8-10.8) H 08/04/24 13:00
RBC 6.11 10^6/uL (4.70-6.10) H 08/04/24 13:00
Hgb 17.4 g/dL (13.0-18.0) 08/04/24 13:00
Hct 49.8 % (39.0-52.0) 08/04/24 13:00
Plt Count 283 10^3/uL (130-400) D 08/04/24 13:00
eGFR Cancelled 08/04/24 13:00
Hgm-O-Ypgnijfxlos Pept 192 pg/ml 08/04/24 09:43
On 06/03/2024 creatinine 1.06, potassium 3.3, sodium 135, bicarbonate 24, calcium 9.8, AST 12, ALT 15, A1c 5.7, cholesterol 176, HDL 25, LDL 111, triglycerides 302
Physical Exam
Patient is sedated and intubated. Mood and affect could not be assessed, insight and judgment could not be assessed. sclera were anicteric. Hearing could not be assessed, ears and nose are intact. Oropharynx was clear. Neck was supple with
trachea midline and no thyromegaly. Heart was regular rate and rhythm without rubs. Lower extremities without edema. Lungs were clear to auscultation bilaterally and with normal excursion. Abdomen was soft, nontender, with normal active bowel
sounds, and no hepatosplenomegaly. Skin was without rash and with normal turgor.
Data Reviewed
-
Radiology: Image Personally Visualized and interpreted (Chest x-ray 08/04/2024 by my reading shows vascular fullness, no acute disease)
Medical Tests (Nuc Med, Echo etc): Image Personally Visualized and interpreted (EKG on 08/04/2024 by read shows normal sinus rhythm right bundle branch block left posterior fascicular block)
Labs: Labs Reviewed by me
Old Records: Reviewed
Assessment/Plan
-
Assessment
MARY
Hypotension
Metabolic acidosis
Lactic acidosis
STEMI, PCI LAD and OM
VDRF
Asthma
History hypertension
Diabetes mellitus type 2
Low grade prostate cancer
Plan
Impella device per cardiology
Keep mean arterial pressure greater than 65
Maintain Arndt
Follow BMP
Given hypotension with contrast and recent SHEKHAR inhibitor diuretic, we will likely see his creatinine trend upward in the near future.
It is possible he may require dialysis
Preliminary echo suggest ejection fraction 40%. At this time we will not double concentrate pressors but if his urine output decreases we may need to do this in the morning
Follow lactic acid and LFTs
Critical care time spent 40 minutes
--- NOTE | 2024-08-04 14:23 | CON.INTV ---
Consultation
Consultation Request
Date/Time Consultation Requested: 08/04/2024
Date/Time Consultation Performed: 08/04/2024
Requesting Provider: Dr. Recinos
Performing Provider: Dr. Pavan Dawn
Reason for Consultation: Cardiorespiratory arrest-ST elevation myocardial infarction
Medical History
-
History of Present Illness:
68-year-old man with history of hypertension, former smoker who was admitted on 08/04/2024 after developing cardiac arrest at home. Witnessed by family friend, she is a ICU nurse. CPR started immediately. EMS was called in. He was found to be on
ventricular fibrillation. Regained spontaneous circulation and back to sinus rhythm.
Upon arrival to the emergency room again had a cardiorespiratory arrest, ventricular fibrillation. Intubated, sedated and placed on mechanical ventilation.
EKG was consistent with myocardial infarction, atrial fibrillation. Patient developed shock, required antiarrhythmics. Cardiology was at the bedside evaluating patient.
Patient was transferred to the Re[facility] Coord[facility], he was found to have an LAD occlusion and obtuse marginal. Both stented. Given ongoing shock state despite the stenting Impella device was placed.
He was also being contemplated for ECMO but since patient stabilized this was aborted. CT surgery also evaluated the patient.
He did have postprocedure and brief event of PEA cardiac arrest. Brief CPR given.
Now transferred to the CVICU. He is sedated on propofol. Attempting to open eyes. Moving 4 extremities.
Impella device in place.
Has acute kidney injury. Lactic acidosis. Hypokalemia.
It was decided not to perform targeted temperature protocol. Patient moving 4 extremities. Attempted to open eyes to verbal stimuli. This is while on propofol.
-
I personally discussed with family friends who are his only contact in this country. He is originally from [facility]. Does not have any children or .
Former smoker.
Does not drink alcohol
Nondiabetic.
On Ozempic for weight loss
Has lost about 45 pounds in the last several months.
Past Medical History
Past Medical History: Other (See assessment and plan)
Social History
Tobacco: Former Smoker
Alcohol: None
Drug: None
Personal: Single
Living: Other (Friends a-like his family)
Family History
Family History: Unable to Obtain
Allergies / Home Medications
Allergies
Allergy/AdvReac Type Severity Reaction Status Date / Time
No Known Allergies Allergy Unverified 08/04/24 07:53
Home Medications
�Medication �Instructions �Recorded �Confirmed �Last Taken �Type
Ozempic units SC WEEKLY 08/04/24 Unknown History
enalapril maleate PO 08/04/24 Unknown History
hydrochlorothiazide mg PO 08/04/24 Unknown History
Review of Systems
-
Unable to Obtain full review of systems at this time due to: Acuity and Patient Intubation
Vitals / Labs / Diagnostic Testing
Vital Signs
Temp Pulse Resp BP Pulse Ox
94.8 F L 97 22 104/56 98
08/04/24 14:00 08/04/24 14:10 08/04/24 14:10 08/04/24 08:38 08/04/24 14:10
Lab Data
08/04/24 13:00
Laboratory Results
08/04/24 08/04/24 08/04/24
07:54 09:43 13:00
PT 15.9 H
INR 1.29
APTT 76.3 H
pH Cancelled 7.18 L* 7.24 L
pCO2 Cancelled 49 H 54 H
pO2 Cancelled 144 H 128 H
HCO3 Cancelled 18.3 L 23.1
O2 Delivery Level Cancelled Ac18/500/100%/+5
Diagnostic Testing:
Physical Exam
-
HEENT: Normocephalic and Other (ET tube in place without secretions)
Cardiovascular: S1/S2
Respiratory: Clear
GI: Soft and Distended
Neurology: Other (Sedated on propofol. Attempted to move 4 extremities. Attempted to open eyes to verbal stimuli. Overbreathing the ventilator.) and Other (Pupils are equal)
Skin: Warm
General: Comfortable
Assessment
-
68-year-old man with past medical history of hypertension, former smoker who came after developing acute cardiorespiratory arrest. Immediate CPR was started at home. EMS found the patient on ventricular fibrillation. In the emergency room again
had episode of cardiorespiratory arrest x 2 ventricular fibrillation. ACLS performed. EKG consistent with ischemic injury. Transferred to the Re[facility] Coordinator underwent LAD stents and obtuse marginal stent. Developed ongoing cardiogenic shock state.
Impella device placed. Transferred to the CVICU.
Cardiac arrest
Ventricular fibrillation
Presumed myocardial infarction ST and T T wave changes.
Status post LAD stent/obtuse marginal stent 08/04/2024
Bedside echocardiogram showed ejection fraction around 45%.
Hypercapnic respiratory failure postarrest
Acute kidney injury/metabolic acidosis/increased lactic acid post cardiac arrest
Cardiogenic shock post event
Hyperglycemia
Possible CVA by CAT scan.
Conditions present prior admission
Hypertension
On Ozempic for weight loss
Nondiabetic
Former smoker
Does not drink alcohol
Assessment and plan:
Patient is critically ill, intubated on mechanical ventilation. Sedated.
-
Mechanical ventilation settings reviewed.
Currently pulse ox is acceptable at 95%.
Peak pressures 23. Plateau pressure 18.
Patient sedated on propofol.
Latest ABG showed hypercapnic respiratory failure.
Will repeat ABG now and adjust mechanical ventilation as necessary.
Obtain chest x-ray stat to document position of ET tube.
-
Status post cardiorespiratory arrest/myocardial infarction
Status post LAD and obtuse marginal stents 08/04/2024 emergently
Cardiogenic shock
LVEF on bedside echocardiogram 40 to 40%. No pericardial effusion.
Impella device in place managed by cardiology.
Additional normal saline bolus will be given.
Continue antiarrhythmics: IV lidocaine/amiodarone
Antiplatelet
Anticoagulants per cardiology
Goal-directed therapy for ischemic cardiomyopathy eventually.
Eventual formal echocardiogram at the bedside.
-
Patient has a PA catheter in place
He has a femoral sheath in place
Arterial line in place.
-
Acute kidney injury/metabolic acidosis-continue hemodynamic support.
Follow acidosis
Follow lactic acid
Nephrology has been consulted
Bicarbonate drip may be needed.
-
Neurological status: Patient moving 4 extremities. Attempting to open eyes with verbal stimuli.
Withdrawing to pain.
Overbreathing the ventilator
Cardiac event happened longer than 6 hours ago.
No indication for targeted temperature protocol at this point.
CT head noted: Potential frontal CVA. No evidence for bleeding.
Eventual MRI
Discussed with friends/family members.
-
Sedation with propofol drip-RASS score -1
Will add fentanyl IV boluses as needed for pain control.
-
Hyperglycemia: Will start insulin drip
Continue per protocol
-
N.p.o.
Protonix for GI prophylaxis
DVT prophylaxis SCDs. Eventual Lovenox pharmacological prophylaxis.
NG tube placed
-
Dr. Dawn updated extensively family members who are like his family. 08/04/2024 does not have any or children. No first blood relatives close. One of the [place] power of district attorney.
-
Critical care statement: A total of 85 minutes of critical care time was provided for this patient today. This includes management of unstable vital signs, evaluation of the patient at bedside, reviewing the patient's pertinent medical records
including ventilator settings, arterial blood gases, radiographs, microbiology, laboratory evaluations and discussion with primary team, critical care nursing, and respiratory therapy.
[2024-08-04 14:33] LABS: Triglycerides 165 mg/dl (10-149)
[2024-08-04] MEDS: BRILINTA 180 MG PO (14:44)
[2024-08-04 14:45] LABS: Mixed Venous O2 Saturation 66.3 %
[2024-08-04] MEDS: NSS 1000 IV (14:47)
[2024-08-04] MEDS: ADRENALIN 250 IV (14:48)
[2024-08-04] MEDS: SODIUM BICARBONATE 1025 MEQ INF CATH (14:53)
[2024-08-04 14:57] LABS: ALT (SGPT) 81 U/L (0-50); AST (SGOT) 509 U/L (17-59); Albumin 4.4 g/dl (3.5-5.0); Alkaline Phosphatase 52 U/L (38-126); Blood Urea Nitrogen 38 mg/dl (9-20); Calcium 9.1 mg/dl (8.4-10.2); Carbon Dioxide 18 mmol/L (22-30); Chloride 98 mmol/L (98-107); Estimated Creatinine Clearance 54 ml/min; Glucose 273 mg/dl (70-99); Magnesium 2.9 mg/dl (1.6-2.3); Phosphorus 3.1 mg/dl (2.5-4.5); Potassium 3.1 mmol/L (3.5-5.1); Sodium 135 mmol/L (135-145); Total Bilirubin 2.8 mg/dl (0.2-1.3); Total Protein 6.7 g/dl (6.3-8.2); eGFR 46.93
[2024-08-04] MEDS: DOBUTREX 500 MG 250 IV (15:00)
[2024-08-04] MEDS: LEVOPHED 250 IV (15:00)
[2024-08-04] MEDS: NOVOLIN R INSULIN INFUSION 100 IV (15:02)
--- NOTE | 2024-08-04 15:04 | PTCARENOTE ---
Insulin gtt started per Critical Care Glycemic Protocol.
[2024-08-04 15:08] LABS: B.E. -8.3 mmol/L; HCO3 18.4 mmol/L (21-28); PCO2 41 mmHg (35-48); PO2 255 mmHg (83-108); pH 7.26 (7.35-7.45)
[2024-08-04] MEDS: NOVOLIN R 6 UNITS IV (15:08)
[2024-08-04 15:09] LABS: Glucose - Point of Care 318 mg/dl (70-99)
[2024-08-04 15:11] LABS: Lactic Acid 3.6 mmol/L (0.7-2.0)
[2024-08-04 15:12] LABS: Urine Albumin 2+ (Neg - Trace); Urine Bilirubin Negative (Negative); Urine Character Very Cloudy (Clear); Urine Color Yellow; Urine Glucose 1+ (Negative); Urine Ketone Negative (Negative); Urine Leukocyte Negative (Negative); Urine Nitrite Negative (Negative); Urine Occult Blood 4+ (Negative); Urine Specific Gravity 1.015 (<1.030); Urine Urobilinogen Negative (Neg - 1+)
[2024-08-04 15:22] LABS: Urine Bacteria Few (Negative)
[2024-08-04 15:23] LABS: Urine Red Blood Cell 50-60 /HPF (0-2)
[2024-08-04] MEDS: KCL 50 IV ×2 (15:27→16:47)
[2024-08-04 15:28] LABS: Urine Sodium 20 mmol/L (30-90)
--- NOTE | 2024-08-04 15:30 | PTCARENOTE ---
4amps bicarb, 2g CaCl given for base excess. Dr. Hendricks at bedside.
--- NOTE | 2024-08-04 15:30 | PTCARENOTE ---
Per Dr. Hendricks and Dr. Beasley, 1L NSS bolus given for Impella suction alarms. Transition from Dopamine an Epi to Levophed and Dobutamine per orders.
--- NOTE | 2024-08-04 15:45 | PTCARENOTE ---
Pt vomited around OGT a significant amount of brown liquid. OGT placed to suction, with ~800ml output. Dr. Hendricks at bedside and aware. Pt also with large liquid brown stool. Integrilin gtt to be restarted per Dr. Beasley since Brilinta was most
likely not absorbed.
[2024-08-04] MEDS: SODIUM BICARBONATE 50 MEQ IV ×4 (16:16)
[2024-08-04] MEDS: VERSED 2 MG IV (16:17)
[2024-08-04] MEDS: CALCIUM CHLORIDE 10% SYRINGE 1000 MG IV (16:17)
[2024-08-04 16:41] LABS: Glucose - Point of Care 234 mg/dl (70-99)
[2024-08-04] MEDS: INTEGRILIN 100 IV (16:45)
[2024-08-04 16:46] LABS: B.E. 0.8 mmol/L; HCO3 27.1 mmol/L (21-28); O2 Saturation % 98.1 % (94-98); PCO2 48 mmHg (35-48); PO2 76 mmHg (83-108); pH 7.36 (7.35-7.45)
--- NOTE | 2024-08-04 17:10 | PTCARENOTE ---
Pt core temp remains hypothermic. Verbal order per Dr. Beasley to keep temp ~ 36 degrees celcius. Pt currently 95.4. Racker Octave Board notified and put in hypothermia protocol. Artic sun not applied at this time due to pts temp of 95.4. Educator consulted
on this and in agreement.
[2024-08-04 17:46] LABS: Glucose - Point of Care 219 mg/dl (70-99)
[2024-08-04 17:51] LABS: B.E. -3.1 mmol/L; HCO3 23.2 mmol/L (21-28); PCO2 45 mmHg (35-48); PO2 143 mmHg (83-108); pH 7.32 (7.35-7.45)
--- NOTE | 2024-08-04 17:54 | PTCARENOTE ---
ACT 152, Dr. Beasley made aware, and orders to start Impella heparin protocol obtained.
[2024-08-04 17:59] LABS: ACT-LR - POC 152 Seconds (116-155)
[2024-08-04 18:02] LABS: APTT 29.6 Sec (23.4-35.0)
[2024-08-04 18:12] LABS: Lactic Acid 5.1 mmol/L (0.7-2.0)
[2024-08-04 18:16] LABS: AST (SGOT) 628 U/L (17-59); Albumin 3.5 g/dl (3.5-5.0); Alkaline Phosphatase 40 U/L (38-126); Blood Urea Nitrogen 43 mg/dl (9-20); Calcium 10.8 mg/dl (8.4-10.2); Carbon Dioxide 25 mmol/L (22-30); Chloride 100 mmol/L (98-107); Estimated Creatinine Clearance 51 ml/min; Glucose 201 mg/dl (70-99); Potassium 3.2 mmol/L (3.5-5.1); Sodium 138 mmol/L (135-145); Total Protein 5.6 g/dl (6.3-8.2); Triglycerides 211 mg/dl (10-149); eGFR 43.64
--- NOTE | 2024-08-04 18:29 | W.PN.UPDATE ---
Update Note
Progress Note Update
Unfortunately, patient has progressed, multiorgan failure, progressive cardiogenic shock.
Currently on multiple vasopressors.
Impella device in place.
Heavily sedated.
On mechanical ventilation. ABG reviewed with adequate oxygenation and ventilation. Continue mechanical ventilation without change
Patient has been hypothermic all along. It has been decided to start TTM to 36 degrees-orders has been placed.
Cardiology has discussed the case with The shock team at [facility]. Patient has been accepted.
He will be transferred.
Family/friends understands severity/critical illness degree of the patient.
-
Discussed with nursing
Discussed with pharmacy
-Additional critical care time 30 minutes.
--- NOTE | 2024-08-04 18:30 | PTCARENOTE ---
Additional large brown liquid BM. Rectal trumpet placed to bag to prevent skin breakdown and limit turning with Impella in place.
--- NOTE | 2024-08-04 18:30 | W.PN.UPDATE ---
Update Note
Progress Note Update
Notified by RN that patient is going to be transferred to [facility] for possible ECMO. Spoke with interventional cardiology Dr. Beasley and patient has been accepted under Dr. Benito Kahn from [facility]. Patient is currently intubated and
is on multiple pressors. Transfer form done, verbally consented by patient's BRITT Goldberg over the phone. RN Witnessed and signed the form.
[2024-08-04] MEDS: TYLENOL/FEVERALL 650 MG RECTAL (18:32)
[2024-08-04 18:35] LABS: ALT (SGPT) 102 U/L (0-50); Direct Bilirubin 1.1 mg/dl (0.0-0.4)
[2024-08-04 18:54] LABS: LDH 1661 U/L (120-246)
[2024-08-04] MEDS: HEPARIN 25000 UNITS/250 ML IV (18:58)
--- NOTE | 2024-08-04 19:00 | PTCARENOTE ---
TR band removed per protocol. 4x4 applied.
--- NOTE | 2024-08-04 19:06 | PTCARENOTE ---
Report given to Marvel rFederick in HVICU. Family updated on plan to transfer, and room number.
--- NOTE | 2024-08-04 19:08 | W.PN.UPDATE ---
Update Note
Progress Note Update
After transfer from analyst microbiology lab to HVICU, patient continued to require high dose inotropic and pressor support to maintain MAPs and perfusion. Cardiac index 1.6-1.8 on bedside thermodilution despite high dose norepi, dobutamine, and additional of
epinephrine. Bedside echocardiography was performed (reviewed personally while images obtained at bedside) and demonstrated severely reduced EF, no effusion, appropriate Impella depth, no MR. The patient was given ticagrelor orally but had a large
episode of emesis with possible aspiration subsequently and thus Integrilin has been continued until oral P2Y12 can be given. Integrilin discussed with pharmacy and decision made to continue current dosing despite borderline GFR and reassess given
concern for IST with underdosing. Post-emesis, pO2 worsened with P:F ~120 suggestive of possible aspiration. Case discussed with Dr. Hendricks from CT surgery: decision made that patient would be escalated to ECMO if recurrent arrest, but given severe
degree of shock and LV dysfunction, may be better served by transfer to [place] for advanced therapies consideration and shock management. Case discussed with Dr. Suki Aguirre at [place] and patient accepted tentatively for transfer pending bed
availability. Family updated multiple times over the phone regarding plans for possible transfer and ongoing management. Family appreciative of efforts and agreeable to transfer if accepted. Case discussed with hospitalist and pulmonary teams.
Extensive discussions with bedside nursing in person and via secure chat regarding care plan throughout the day.
[2024-08-04 19:28] LABS: Glucose - Point of Care 197 mg/dl (70-99)
--- NOTE | 2024-08-04 19:48 | W.PN.UPDATE ---
Update Note
Progress Note Update
[place] texted by primary nurse Lurdes Gil to come to the bedside to assess the patient due to rising pressor support.
I came in to assess at bedside at 740pm while the life flight crew was readying patient for transfer to [place]. Escalating pressor dosing. Peripherally cool. In cardiogenic shock. I had reviewed afternoon labs earlier today and most recent labs noted.
Rising LFT's and lactic acid remains elevated. Dr. Beasley has documented his care throughout the afternoon/evening, clinical rationale for [facility] transfer, and there are update notes from critical care team as well.
As the center consultant who was with him for approximately 7hrs earlier today and the latter physicians with him most of the afternoon I agree with transfer and suspect he will need LVAD support and potential transplant evaluation. Hospitalist
attending, IC attending, CT surgery attending, Critical care attending and myself all involved fairly actively throughout the day at various times since 7am.
Please do not hesitate to reach out with any further questions. Dr. Beasley has updated the family and nursing at the bedside also communicated to me that the family had been updated.
--- NOTE | 2024-08-04 20:11 | PTCARENOTE ---
[facility] team at bedside and in process of transferring pt under their care. At 1950, MAP 48. Levo increased to 20 mcg/min. NS 400 mls infused for volume replacement, Epi gtt increased to 8 mcg/min. Current BP is 94/58 (72). O2 sats maintained
at 98%. FiO2 80%, vent rate 24 bpm, TV 500, Peep 5, AC mode. Pt in SR with occasional PVCs at 90 bpm.
--- NOTE | 2024-08-04 20:55 | PTCARENOTE ---
VS and Impella measurements have been recorded. All gtts on [employer] crew's IV pumps. Ice packs provided to axillary and groin for cooling. Pt transferred to Flight crew's stretcher from his hospital bed with the assist of 6 health care
professionals. Pt escorted to ambulance and then to helipad with Flight Crew and RN & RT,monitored and on vent via [employer] equipment. Impella with pt. O2 Sats maintained at 100%. Pt in SR, 90's, with occasional PVCs. Cuff BP on ambulance
136/86 (103). Aortic Impella pressure 122/74 (80). Impella flow 2.6 L/min, P-6.
--- NOTE | 2024-08-04 21:00 | PTCARENOTE ---
Pt transported out of CVICU with [place] flight crew.
[2024-08-05 11:02] LABS: Glycohemoglobin (HgbA1c) 5.4 % (4.0-5.6)
[2024-08-05 11:56] LABS: ACT-LR - POC 282 Seconds (116-155)
[2024-08-05 11:56] LABS: ACT-LR - POC 234 Seconds (116-155)
[2024-08-05 11:56] LABS: ACT-LR - POC 276 Seconds (116-155)
[2024-08-05 11:56] LABS: ACT-LR - POC 306 Seconds (116-155)
[2024-08-05 11:56] LABS: ACT-LR - POC 195 Seconds (116-155)
== END 2024-08-04 21:00 | disposition short-term general hospital (02) | DRG 215 ==
LOC: CVICU 12:43
PROVIDERS: Physician Assistant Medical; Student in an Organized Health Care Education/Training Program; ADMITTING PHYSICIAN Emergency Medicine; CONSULT PHYSICIAN Internal Medicine Cardiovascular Disease; CONSULT PHYSICIAN Internal Medicine Critical Care Medicine; CONSULT PHYSICIAN Specialist; OTHER PHYSICIAN Thoracic Surgery (Cardiothoracic Vascular Surgery)
PROC: B241ZZ3 Ultrasonography of Multiple Coronary Arteries, Intravascular (ICD-10-PCS; 2024-08-04)
PROC: 5A12012 Performance of Cardiac Output, Single, Manual (ICD-10-PCS; 2024-08-04)
PROC: B2111ZZ Fluoroscopy of Multiple Coronary Arteries using Low Osmolar Contrast (ICD-10-PCS; 2024-08-04)
PROC: 5A1935Z Respiratory Ventilation, Less than 24 Consecutive Hours (ICD-10-PCS; 2024-08-04)
PROC: 5A0221D Assistance with Cardiac Output using Impeller Pump, Continuous (ICD-10-PCS; 2024-08-04)
PROC: 03HY32Z Insertion of Monitoring Device into Upper Artery, Percutaneous Approach (ICD-10-PCS; 2024-08-04)
PROC: 027136Z Dilation of Coronary Artery, Two Arteries with Three Drug-eluting Intraluminal Devices, Percutaneous Approach (ICD-10-PCS; 2024-08-04)
PROC: 4A023N8 Measurement of Cardiac Sampling and Pressure, Bilateral, Percutaneous Approach (ICD-10-PCS; 2024-08-04)
PROC: 02HA3RZ Insertion of Short-term External Heart Assist System into Heart, Percutaneous Approach (ICD-10-PCS; 2024-08-04)
DX: I21.19 ST elevation (STEMI) myocardial infarction involving other coronary artery of inferior wall (principal); I49.01 Ventricular fibrillation; J96.01 Acute respiratory failure with hypoxia; R57.0 Cardiogenic shock; J96.02 Acute respiratory failure with hypercapnia; I46.2 Cardiac arrest due to underlying cardiac condition; N17.9 Acute kidney failure, unspecified; E87.4 Mixed disorder of acid-base balance; I47.20 Ventricular tachycardia, unspecified; N18.2 Chronic kidney disease, stage 2 (mild); E11.22 Type 2 diabetes mellitus with diabetic chronic kidney disease; J45.909 Unspecified asthma, uncomplicated; E11.65 Type 2 diabetes mellitus with hyperglycemia; I25.10 Atherosclerotic heart disease of native coronary artery without angina pectoris; I48.91 Unspecified atrial fibrillation; I12.9 Hypertensive chronic kidney disease with stage 1 through stage 4 chronic kidney disease, or unspecified chronic kidney disease; C61 Malignant neoplasm of prostate; E87.6 Hypokalemia; I25.5 Ischemic cardiomyopathy; D72.829 Elevated white blood cell count, unspecified; R68.0 Hypothermia, not associated with low environmental temperature; Z86.73 Personal history of transient ischemic attack (TIA), and cerebral infarction without residual deficits; Z87.891 Personal history of nicotine dependence; Z79.84 Long term (current) use of oral hypoglycemic drugs
CPT/HCPCS: 33990; 36620; 70450; 71045; 80048; 80053; 81003; 81015; 82248; 82570; 82805; 82810; 82962; 83036; 83605; 83615; 83735; 83880; 84100; 84132; 84134; 84300; 84478; 84484; 85025; 85347; 85610; 85730; 86850; 86900; 86901; 92978; 92979; 93005; 93306; 93460; 94002; 96374; 96375; 99291; 99292; C1725; C1753; C1874; C1887; C1894; C9600; C9606; J1327; Q9967

== ENCOUNTER 2024-09-02 11:43 | Outpatient (RCR) | payer MEDICARE, OTHER, SELFPAY | END 2024-09-02 23:59 | disposition home or self-care (01) | LOC: RPT 11:43 | PROVIDERS: ATTENDING PHYSICIAN Physical Medicine & Rehabilitation; FAMILY PHYSICIAN Family Medicine | DX: R57.0 Cardiogenic shock (principal); R54 Age-related physical debility; Z73.6 Limitation of activities due to disability; M62.81 Muscle weakness (generalized); I69.812 Visuospatial deficit and spatial neglect following other cerebrovascular disease | CPT/HCPCS: 97163; 97167 ==

== ENCOUNTER 2024-10-07 09:56 | Outpatient (RCR) | payer MEDICARE, OTHER, SELFPAY | END 2024-10-07 11:15 | disposition home or self-care (01) | LOC: RPT 09:56 | PROVIDERS: ATTENDING PHYSICIAN Physical Medicine & Rehabilitation; FAMILY PHYSICIAN Family Medicine | DX: R57.0 Cardiogenic shock (principal); R54 Age-related physical debility; Z73.6 Limitation of activities due to disability; M62.81 Muscle weakness (generalized); I69.812 Visuospatial deficit and spatial neglect following other cerebrovascular disease | CPT/HCPCS: 97110; 97112; 97530 ==

== ENCOUNTER → 2024-10-10 11:37 | Outpatient (REF) | payer MEDICARE, OTHER, SELFPAY | LOC: RCS 11:37 | PROVIDERS: ATTENDING PHYSICIAN Student in an Organized Health Care Education/Training Program; FAMILY PHYSICIAN Family Medicine | DX: R00.2 Palpitations (principal); R00.0 Tachycardia, unspecified | CPT/HCPCS: 93005 ==

== ENCOUNTER 2024-10-10 12:03 | Emergency (ER) | payer MEDICARE, OTHER, SELFPAY ==
[2024-10-10 12:10] VITALS: BP 126/95
--- NOTE | 2024-10-10 12:18 | ED.GENMED ---
ED Provider Triage
<Radha Aldridge PA-C - Last Filed: 10/10/24 12:20>
-
Patient seen by provider in Triage?: Seen in Triage
Attestation: A medical screening examination has been initiated by a qualified medical provider. Based on the assessment performed at this time, it has been determined that an emergent medical condition may exist and the patient has been informed
that further medical evaluation and possible additional diagnostic testing may be needed.
HPI: 68yoM here with palpitations that started last night. EKG shows afib, new onset. History of vfib cardiac arrest in July. Found to have LAD and obtuse marginal occlusion, both stented. Cardiogenic shock after cath requiring Impella and
pressors. Transferred to [place] for ECMO. Currently follows with Dr. Nasir Foster. No CP/SOB/dizziness.
GENERAL: Alert , in no apparent distress
EYE: No visual abnormalities.
NECK: Trachea midline
ENT: No visible abnormalities.
LUNGS: No acute respiratory distress
NEUROLOGICAL: Alert and oriented
SKIN: Skin intact. No visible changes.
MUSCULOSKELETAL: Moving extremities normally
PSYCH: Normal and appropriate interaction.
This is a medical evaluation conducted in person to initiate diagnostic evaluation and provide initial therapeutics. Please see further documentation by the treating clinician.
Cardiac labs, magnesium, TSH, and EKG ordered.
History of Present Illness
<Radha Aldridge PA-C - Last Filed: 10/10/24 12:20>
General
Chief Complaint: Heart Rate Problem
Time Seen by Provider: 10/10/24 13:19
<Joni Thomas DO - Last Filed: 10/10/24 15:35>
General
Source: patient and spouse
History of Present Illness
History of Present Illness:
68-year-old male presents to the emergency room due to palpitations and rapid heart rate. Patient found to have atrial fibrillation on an EKG from cardiac services. Patient states he has been feeling intermittent palpitations which are relatively
short-lived. Patient had a DE with cardiac arrest on August 04. Patient was initially brought here where he was stented but due to progressive cardiogenic shock he was transferred to [place]. Patient had a prolonged hospitalization at [place] but has
ultimately recovered with what he describes as normal cardiac function. Patient does believe he had short periods of A-fib while he was at [place]. He believes he was started on Eliquis but it was stopped due to some complication but he does not know
what the complication was. At the time of my evaluation the patient has no complaints. The palpitations have ceased.
Phy Exam
<Joni Thomas DO - Last Filed: 10/10/24 15:35>
Physical Exam
Physical Exam:
General: Awake, Alert, Oriented X3. No acute distress.
Vitals: unremarkable
Head: Atraumatic
Eyes: Pupils equal, EOMI
Throat: Airway intact, no exudates
Neck: Trachea midline
Lungs: Clear and equal b/l
Heart: Regular rate, no murmurs
Abd: Soft, Nontender, No pulsatile mass
Neuro: Nonfocal
Skin: Warm, dry, no rash
Extremities: pulses equal b/l, no edema
Course
Adamarislt;Radha Aldridge PA-C - Last Filed: 10/10/24 12:20>
Orders/Labs/Results
Orders:
Orders
10/10/24 12:04
EKG [Electrocardiogram (*1)] Urgent
Reason for Study: Atrial Flutter
10/10/24 12:05
EKG- Treatment ONCE
10/10/24 12:24
Comprehensive Metabolic Panel Urgent
Magnesium Urgent
TSH Reflex To Free T4 Urgent
Troponin I Urgent
10/10/24 13:47
Complete Blood Count/With Diff Urgent
Abnormal Lab Results
10/10/24 10/10/24
12:24 13:47
RBC 4.22 L 10^6/uL
(4.70-6.10)
Hgb 11.9 L g/dL
(13.0-18.0)
Hct 36.8 L %
(39.0-52.0)
MCHC 32.3 L g/dL
(33.0-37.0)
Absolute Monos (auto) 0.9 H 10^3/uL
(0.1-0.6)
Monocytes % 14.9 H %
(1.7-9.3)
Glucose 106 H mg/dl
(70-99)
Total Bilirubin 1.5 H mg/dl
(0.2-1.3)
10/10/24 13:47
10/10/24 12:24
Vital Signs
Initial and Last Documented VS:
Initial Vital Signs
Temp Pulse Resp BP Pulse Ox
99.0 F 66 18 126/95 98
10/10/24 12:10 10/10/24 12:10 10/10/24 12:10 10/10/24 12:10 10/10/24 12:10
Last Documented Vital Signs
Temp Pulse Resp BP Pulse Ox
99.0 F 98 21 142/101 96
10/10/24 12:10 10/10/24 13:45 10/10/24 13:45 10/10/24 13:24 10/10/24 13:48
Adamarislt;Joni Thomas DO - Last Filed: 10/10/24 15:35>
Orders/Labs/Results
Orders:
Orders
10/10/24 12:04
EKG [Electrocardiogram (*1)] Urgent
Reason for Study: Atrial Flutter
10/10/24 12:05
EKG- Treatment ONCE
10/10/24 12:24
Comprehensive Metabolic Panel Urgent
Magnesium Urgent
TSH Reflex To Free T4 Urgent
Troponin I Urgent
10/10/24 13:47
Complete Blood Count/With Diff Urgent
Abnormal Lab Results
10/10/24 10/10/24
12: 13:47
RBC 4.22 L 10^6/uL
(4.70-6.10)
Hgb 11.9 L g/dL
(13.0-18.0)
Hct 36.8 L %
(39.0-52.0)
MCHC 32.3 L g/dL
(33.0-37.0)
Absolute Monos (auto) 0.9 H 10^3/uL
(0.1-0.6)
Monocytes % 14.9 H %
(1.7-9.3)
Glucose 106 H mg/dl
(70-99)
Total Bilirubin 1.5 H mg/dl
(0.2-1.3)
10/10/24 13:47
10/10/24 12:24
Vital Signs
Initial and Last Documented VS:
Initial Vital Signs
Temp Pulse Resp BP Pulse Ox
99.0 F 66 18 126/95 98
10/10/24 12:10 10/10/24 12:10 10/10/24 12:10 10/10/24 12:10 10/10/24 12:10
Last Documented Vital Signs
Temp Pulse Resp BP Pulse Ox
99.0 F 98 21 142/101 96
10/10/24 12:10 10/10/24 13:45 10/10/24 13:45 10/10/24 13:24 10/10/24 13:48
<Joni Thomas, - Last Filed: 10/10/24 15:35>
MDM/Problems Addressed
Differential Diagnosis Includes:
Paroxysmal A-fib, SVT, anemia
MDM/Problems Addressed:
EKG on arrival to the emergency room was atrial fibrillation with rapid ventricular response. Patient spontaneously converted to normal sinus rhythm. His labs here are unremarkable. Case discussed with Dr. Stacey Polo who is on-call for the
patient's cardiology group. We will have him stop baby aspirin and start Eliquis 5 mg twice daily. Increase Toprol to 25 mg twice daily. Patient thought he may have had some reaction while an inpatient at [facility] to Eliquis. Cardiology did a deep
dive into his discharge records and found no evidence of an adverse reaction.
<Joni Thomas DO - Last Filed: 10/10/24 15:35>
*Pulse Oximetry
Patient hypoxic: no
*EKG
Interpreted by ED Provider?: Yes
Interpretation: abnormal
Heart Rate: 130
Rate: tachycardiac
Rhythm: a-fib
[place]: normal axis
Interval: normal interval
QRS Pattern: normal QRS
Ischemia: non-specific ST changes
*Racket Stringer Interpretation
Rate: tachycardiac
Interpretation: abnormal
Rhythm: a-fib
*Critical Care Note
Total Time (30-74mins, 75-104mins- exclusive of procedures): Not Applicable
ED Attending Note
<Radha Aldridge PA-C - Last Filed: 10/10/24 12:20>
-
Portions of this chart may have been created with voice recognition software.� Occasional wrong word or��sound alike� substitutions may have occurred due to the inherent limitations of voice recognition software.
Discharge Plan
Departure
Patient Disposition: Home (Routine Discharge)
Date of Disposition: 10/10/24
Time of Disposition: 15:21
Patient with high blood pressure during this ER visit?: Yes
Condition: Good
Discharge Problem:
Paroxysmal A-fib
Instructions: Atrial fibrillation and atrial flutter - ED discharge instructions, BLOOD PRESSURE
Prescriptions:
New
Eliquis 5 mg tablet
5 mg PO BID Qty: 60 0RF
metoprolol succinate 25 mg tablet extended release 24 hr
25 mg PO BID Qty: 60 0RF
No Action
valacyclovir 1 gram Tablet
1,000 mg PO DAILYPRN PRN (Reason: flares)
ProAir RespiClick 90 mcg/actuation Aerosol Powdr Breath Activated
1 inh INHALATION Q4H PRN (Reason: SOB/wheezing)
alprazolam 0.25 mg Tablet
0.25 mg PO Q8HPRN PRN (Reason: anxiety) 3 Days Qty: 10 0RF
metoprolol succinate 25 mg Tablet Extended Release 24 Hr
12.5 mg PO Q12 30 Days Qty: 30 0RF
potassium chloride 10 mEq Tablet,Er Particles/Crystals
10 meq PO DAILY 30 Days Qty: 30 0RF
escitalopram oxalate 5 mg Tablet
5 mg PO DAILY 30 Days Qty: 30 0RF
aspirin 81 mg Tablet,Chewable
81 mg PO DAILY Qty: 0 0RF
Mounjaro 5 mg/0.5 mL Pen Injector
5 mg SC QWEEK Qty: 0 0RF
Rx Instructions:
MONDAYS
pantoprazole 40 mg Tablet,Delayed Release (Dr/Ec)
40 mg PO DAILY AT 0700 30 Days Qty: 30 0RF
valsartan 40 mg Tablet
20 mg PO DAILY AT 0700 30 Days Qty: 15 0RF
furosemide 40 mg Tablet
40 mg PO DAILY 30 Days Qty: 30 0RF
atorvastatin 40 mg Tablet
40 mg PO HS 30 Days Qty: 30 0RF
clopidogrel [Plavix] 75 mg Tablet
75 mg PO DAILY 30 Days Qty: 30 0RF
zolpidem 10 mg Tablet
10 mg PO HS 30 Days Qty: 30 0RF
Referrals:
Patrica Leija DO [Family Provider] -
Nasir Beasley MD [Active] -
Interventions
Interventions:
*Risk Screen - Suicide Last Done: 12/19/24 12:15
*General Assessment Last Done: 10/10/24 12:15
*Neglect/Abuse Screening Last Done: 10/10/24 12:15
ED- Fall Risk Assessment Last Done: 10/10/24 13:51
*ED COVID-19 Vaccine History Last Done: 10/10/24 12:15
ED- Cardiac Assessment Last Done: 10/10/24 13:48
ED- Pulmonary Assessment Last Done: 10/10/24 13:48
Discharge Date and Time
Print Language: CZECH
[2024-10-10 12:46] LABS: ALT (SGPT) 14 U/L (0-50); AST (SGOT) 21 U/L (17-59); Albumin 4.4 g/dl (3.5-5.0); Alkaline Phosphatase 66 U/L (38-126); Blood Urea Nitrogen 19 mg/dl (9-20); Carbon Dioxide 22 mmol/L (22-30); Chloride 105 mmol/L (98-107); Glucose 106 mg/dl (70-99); Magnesium 2.2 mg/dl (1.6-2.3); Potassium 3.9 mmol/L (3.5-5.1); Sodium 138 mmol/L (135-145); Total Bilirubin 1.5 mg/dl (0.2-1.3); Total Protein 6.9 g/dl (6.3-8.2); eGFR > 60.00
[2024-10-10 12:57] LABS: Troponin I 0.021 ng/ml
[2024-10-10 13:24] VITALS: BP 142/101
[2024-10-10 13:42] VITALS: BMI 29.7
[2024-10-10 14:01] LABS: % Basophils 0.2 % (0-2); % Eosinophils 3.1 % (0-6); % Immature Granulocytes 0.2 % (0-0.5); % Lymphocytes 20.8 % (20.5-51.1); % Monocytes 14.9 % (1.7-9.3); % Neutrophils 60.8 % (42.2-75.2); Absolute Eosinophils 0.2 10^3/uL (0-0.7); Absolute Lymphocytes 1.3 10^3/uL (1.2-3.4); Absolute Monocytes 0.9 10^3/uL (0.1-0.6); Absolute Neutrophils 3.7 10^3/uL (1.4-6.5); Hematocrit 36.8 % (39.0-52.0); Hemoglobin 11.9 g/dL (13.0-18.0); Mean Corp Hgb Conc. 32.3 g/dL (33.0-37.0); Mean Corpuscular Hgb 28.2 pg (27.0-31.0); Mean Corpuscular Volume 87.2 fL (80.0-94.0); Mean Platelet Volume 9.4 fL (7.4-10.4); Nucleated Red Blood Cells % 0 % (-); Platelet Count 267 10^3/uL (130-400); Red Blood Cell Count 4.22 10^6/uL (4.70-6.10); Red Cell Dist. Width 14.4 % (11.5-14.5); White Blood Cell Count 6.1 10^3/uL (4.8-10.8)
== END 2024-10-10 15:45 | disposition home or self-care (01) ==
LOC: EMR 12:03
PROVIDERS: Physician Assistant; EMERGENCY PHYSICIAN Emergency Medicine; FAMILY PHYSICIAN Family Medicine
DX: I48.0 Paroxysmal atrial fibrillation (principal); Z86.74 Personal history of sudden cardiac arrest; Z79.82 Long term (current) use of aspirin
CPT/HCPCS: 99284; 80053; 83735; 84443; 84484; 85025; 93005

== ENCOUNTER 2024-10-23 08:09 | Emergency (ER) | payer MEDICARE, OTHER, SELFPAY ==
[2024-10-23] VITALS (8 sets, daily range): BP systolic 114–130; BP diastolic 63–94
--- NOTE | 2024-10-23 09:20 | ED.GENMED ---
History of Present Illness
General
Chief Complaint: Heart Rate Problem
Source: patient
Exam Limitations: none
Time Seen by Provider: 10/23/24 09:04
Nursing documentation reviewed up to this point in time: agreed with
History of Present Illness
History of Present Illness:
Patient's status post cardiac arrest in July 2024, likely V. tach/V-fib arrest, requiring multiple stent placement, diagnosed with new onset atrial fibrillation 2 weeks ago currently on Eliquis and metoprolol, presents to ED secondary to
increased heart rate noted on his Apple Watch, which woke patient up from sleep this morning. Patient denies dizziness or shortness of breath. Denies nausea or vomiting. Denies chest pain. Denies chest palpitations. Patient proceeded to take
his a.m. dose of Eliquis and metoprolol, prior to arrival. At the time of evaluation ED, patient has no complaints. Denies recent illness. Denies weight gain. Denies back pain. Denies leg pain or swelling. Denies loss of appetite. Patient
states that he has been drinking water and does not drink alcohol.
Review of Systems
Review of Systems
Allergies reviewed?: Yes
All Other Systems: ROS reviewed and negative except as documented in HPI and ROS
Constitutional: Reports no symptoms
EENT: Reports no symptoms
Respiratory: Reports no symptoms
Cardiac: Reports no symptoms
ABD/GI: Reports no symptoms
Musculoskeletal: Reports no symptoms
Skin: Reports no symptoms
Neurological: Reports no symptoms
Phy Exam
Physical Exam
Physical Exam:
Physical Exam
General: no apparent distress, not acutely ill. afebrile
Head: nc/at. eomi
Neck: supple. no meningeal signs.
Heart: irregularly irregular, tachycardic, no murmur. equal radial pulses.
Lungs: no acute respiratory distress. clear bilaterally
Abdomen: normal bowel sounds. not tender.
Neuro: alert and oriented. no focal neurological deficits
Skin: no rash
Psychiatric: well kept. interactive and cooperative
Extremities: no edema. no calf tenderness
Course
Orders/Labs/Results
Orders:
Orders
10/23/24
Electrocardiogram (*1) Stat
Comment: DONE EMR
10/23/24 08:34
ECG [Electrocardiogram (*1)] Urgent
Reason for Study: Palpitations
EKG- Treatment ONCE
10/23/24 09:17
0.9% Sodium Chloride 500 ml [Nss] 500 ml IV BOLUS
10/23/24 09:18
Diltiazem HCl [Cardizem] 10 mg IV NOW STA
10/23/24 09:23
Comprehensive Metabolic Panel Urgent
Magnesium Urgent
TSH Urgent
10/23/24 09:24
Complete Blood Count/With Diff Urgent
Troponin I Urgent
10/23/24 09:30
Diltiazem 125 mg/125 ml Nss [Cardizem] 125 mg in 125 ml IV PER PROTOCOL
Initial dose in mg/hr, then titrate:: 5
Titrate to keep:: Heart rate 80-100 bpm
Titrate by mg/hr:: 5 mg/hr
Frequency of titrations (minutes):: 15
Maximum dose in mg/hr:: 15
10/23/24 10:59
Metoprolol [Lopressor] 25 mg PO NOW STA
Abnormal Lab Results
10/23/24 10/23/24
09:23 09:24
Hgb 12.9 L g/dL
(13.0-18.0)
MCHC 32.1 L g/dL
(33.0-37.0)
Absolute Lymphs (auto) 1.1 L 10^3/uL
(1.2-3.4)
Absolute Monos (auto) 0.9 H 10^3/uL
(0.1-0.6)
Lymphocytes % 15.4 L %
(20.5-51.1)
Monocytes % 12.1 H %
(1.7-9.3)
Glucose 105 H mg/dl
(70-99)
Calcium 10.3 H mg/dl
(8.4-10.2)
Total Bilirubin 1.7 H mg/dl
(0.2-1.3)
AST 16 L U/L
(17-59)
10/23/24 09:24
10/23/24 09:23
Vital Signs
Initial and Last Documented VS:
Initial Vital Signs
Temp Pulse Resp BP Pulse Ox
98.4 F 144 22 129/94 99
10/23/24 08:29 10/23/24 08:29 10/23/24 08:29 10/23/24 08:29 10/23/24 08:29
Last Documented Vital Signs
Temp Pulse Resp BP Pulse Ox
98.4 F 79 15 114/63 97
10/23/24 08:29 10/23/24 12:30 10/23/24 12:30 10/23/24 12:30 10/23/24 12:30
MDM/Problems Addressed
MDM/Problems Addressed:
History and exam consistent with recurrent rapid atrial fibrillation. Fortunately, during evaluation and treatment with Cardizem bolus followed by infusion, as well as IV fluids, patient noted to convert spontaneously into sinus rhythm, confirmed
by repeat EKG.
Discussed with on-call cardiology, Dr. Mccord. Recommends increasing patient's metoprolol dose to 50 mg twice daily, along with urgent outpatient follow-up, for potential EP study.
Critical care statement: A total of 40 minutes of critical care time was provided for this patient. This includes management of unstable vital signs, evaluation of the patient at bedside, reviewing the patient's pertinent medical records, discussion
with consultants, review of old EKGs and review of pertinent medical records. This time with separate from time utilized to perform the aforementioned documented procedures
*EKG
Interpreted by ED Provider?: Yes
EKG Intrepretation Date: 10/23/24
Heart Rate: 109
Rate: tachycardiac
Rhythm: a-fib
[place]: normal axis
Interval: normal interval
QRS Pattern: normal QRS
*Critical Care Note
Total Time (30-74mins, 75-104mins- exclusive of procedures): 40 min
ED Attending Note
-
Portions of this chart may have been created with voice recognition software.� Occasional wrong word or��sound alike� substitutions may have occurred due to the inherent limitations of voice recognition software.
Discharge Plan
Departure
Patient Disposition: Home (Routine Discharge)
Date of Disposition: 10/23/24
Time of Disposition: 12:35
Patient with high blood pressure during this ER visit?: Yes
Discharge Problem:
Atrial fibrillation
Instructions: Atrial Fibrillation (DC)
Prescriptions:
No Action
Eliquis 5 mg tablet
5 mg PO BID Qty: 60 0RF
metoprolol succinate 25 mg tablet extended release 24 hr
25 mg PO BID Qty: 60 0RF
valacyclovir 1 gram Tablet
1,000 mg PO DAILYPRN PRN (Reason: flares)
ProAir RespiClick 90 mcg/actuation Aerosol Powdr Breath Activated
1 inh INHALATION Q4H PRN (Reason: SOB/wheezing)
alprazolam 0.25 mg Tablet
0.25 mg PO Q8HPRN PRN (Reason: anxiety) 3 Days Qty: 10 0RF
metoprolol succinate 25 mg Tablet Extended Release 24 Hr
12.5 mg PO Q12 30 Days Qty: 30 0RF
potassium chloride 10 mEq Tablet,Er Particles/Crystals
10 meq PO DAILY 30 Days Qty: 30 0RF
escitalopram oxalate 5 mg Tablet
5 mg PO DAILY 30 Days Qty: 30 0RF
aspirin 81 mg Tablet,Chewable
81 mg PO DAILY Qty: 0 0RF
Mounjaro 5 mg/0.5 mL Pen Injector
5 mg SC QWEEK Qty: 0 0RF
Rx Instructions:
MONDAYS
pantoprazole 40 mg Tablet,Delayed Release (Dr/Ec)
40 mg PO DAILY AT 0700 30 Days Qty: 30 0RF
valsartan 40 mg Tablet
20 mg PO DAILY AT 0700 30 Days Qty: 15 0RF
furosemide 40 mg Tablet
40 mg PO DAILY 30 Days Qty: 30 0RF
atorvastatin 40 mg Tablet
40 mg PO HS 30 Days Qty: 30 0RF
clopidogrel [Plavix] 75 mg Tablet
75 mg PO DAILY 30 Days Qty: 30 0RF
zolpidem 10 mg Tablet
10 mg PO HS 30 Days Qty: 30 0RF
Referrals:
Nasir Beasley MD [Family Provider] -
Activity Restrictions/Additional Instructions:
As discussed, please follow-up with your coffee bar attendant for further evaluation and treatment. In the meantime, please increase dose of metoprolol to 50 mg twice daily, along with continuation of Eliquis.
Interventions
Interventions:
*Risk Screen - Suicide Last Done: 10/23/24 08:29
*General Assessment Last Done: 10/23/24 08:29
*Neglect/Abuse Screening Last Done: 10/23/24 08:29
ED- Fall Risk Assessment Last Done: 10/23/24 13:00
*ED COVID-19 Vaccine History Last Done: 10/23/24 13:01
*Nursing Disposition Last Done: 10/23/24 13:00
ED- Cardiac Assessment Last Done: 10/23/24 10:43
ED- Pulmonary Assessment Last Done: 10/23/24 10:43
Discharge Date and Time
Discharge Date/Time: 10/23/24 13:01
Print Language: ALGERIAN
[2024-10-23] MEDS: CARDIZEM 10 MG IV (09:32)
[2024-10-23 09:35] LABS: % Basophils 0.3 % (0-2); % Eosinophils 2.7 % (0-6); % Immature Granulocytes 0.3 % (0-0.5); % Lymphocytes 15.4 % (20.5-51.1); % Monocytes 12.1 % (1.7-9.3); % Neutrophils 69.2 % (42.2-75.2); Absolute Eosinophils 0.2 10^3/uL (0-0.7); Absolute Lymphocytes 1.1 10^3/uL (1.2-3.4); Absolute Monocytes 0.9 10^3/uL (0.1-0.6); Absolute Neutrophils 5.1 10^3/uL (1.4-6.5); Hematocrit 40.2 % (39.0-52.0); Hemoglobin 12.9 g/dL (13.0-18.0); Mean Corp Hgb Conc. 32.1 g/dL (33.0-37.0); Mean Corpuscular Hgb 27.4 pg (27.0-31.0); Mean Corpuscular Volume 85.4 fL (80.0-94.0); Mean Platelet Volume 9.6 fL (7.4-10.4); Nucleated Red Blood Cells % 0 % (-); Platelet Count 288 10^3/uL (130-400); Red Blood Cell Count 4.71 10^6/uL (4.70-6.10); Red Cell Dist. Width 14.2 % (11.5-14.5); White Blood Cell Count 7.4 10^3/uL (4.8-10.8)
[2024-10-23] MEDS: NSS 500 IV (09:41)
[2024-10-23] MEDS: CARDIZEM 125 IV (09:42)
[2024-10-23 10:04] LABS: ALT (SGPT) 12 U/L (0-50); AST (SGOT) 16 U/L (17-59); Albumin 4.4 g/dl (3.5-5.0); Alkaline Phosphatase 82 U/L (38-126); Blood Urea Nitrogen 14 mg/dl (9-20); Calcium 10.3 mg/dl (8.4-10.2); Carbon Dioxide 23 mmol/L (22-30); Chloride 105 mmol/L (98-107); Glucose 105 mg/dl (70-99); Magnesium 2.3 mg/dl (1.6-2.3); Potassium 3.7 mmol/L (3.5-5.1); Sodium 138 mmol/L (135-145); Total Bilirubin 1.7 mg/dl (0.2-1.3); Total Protein 6.8 g/dl (6.3-8.2); eGFR > 60.00
[2024-10-23 10:10] LABS: Troponin I 0.032 ng/ml
[2024-10-23 10:31] LABS: TSH 1.34 uIU/ml (0.47-4.68)
[2024-10-23] MEDS: LOPRESSOR 25 MG PO (11:03)
== END 2024-10-23 13:01 | disposition home or self-care (01) ==
LOC: EMR 08:09
PROVIDERS: EMERGENCY PHYSICIAN Emergency Medicine; FAMILY PHYSICIAN Student in an Organized Health Care Education/Training Program
DX: I48.91 Unspecified atrial fibrillation (principal); Z79.899 Other long term (current) drug therapy; Z79.01 Long term (current) use of anticoagulants; Z86.74 Personal history of sudden cardiac arrest
CPT/HCPCS: 99284; 96374; 80053; 83735; 84443; 84484; 85025; 93005

== ENCOUNTER 2024-11-08 05:15 | Emergency (ER) | payer MEDICARE, OTHER, SELFPAY ==
[2024-11-08 05:23] VITALS: BP 137/84
[2024-11-08 05:41] VITALS: BP 128/86
[2024-11-08 05:42] VITALS: BMI 28.7
[2024-11-08 06:00] VITALS: BP 110/73
--- NOTE | 2024-11-08 06:18 | ED.GENMED ---
History of Present Illness
General
Chief Complaint: Heart Rate Problem
Source: patient
Exam Limitations: none
Time Seen by Provider: 11/08/24 06:10
History of Present Illness
History of Present Illness:
See MDM
Past History
Past History
ED Past Medical History: Arrthythmia and CAD
ED Past Surgical History: Cardiac
Social History
Tobacco: Non-smoker
Alcohol: None
Phy Exam
Physical Exam
Physical Exam:
See MDM
Course
Orders/Labs/Results
Orders:
Orders
11/08/24 05:16
EKG [Electrocardiogram (*1)] Urgent
Reason for Study: Angina, Unstable
11/08/24 05:17
EKG- Treatment ONCE
11/08/24 05:58
Complete Blood Count/With Diff Urgent
Comprehensive Metabolic Panel Urgent
TSH Urgent
11/08/24 06:17
0.9% Sodium Chloride 1000 ml [Nss] 1,000 ml IV BOLUS
Diltiazem HCl [Cardizem] 10 mg IV NOW STA
11/08/24 07:16
Electrocardiogram (*1) Urgent
Reason for Study: Palpitations
EKG- Treatment ONCE
Abnormal Lab Results
11/08/24
05:58
RBC 4.65 L 10^6/uL
(4.70-6.10)
Hgb 12.5 L g/dL
(13.0-18.0)
MCH 26.9 L pg
(27.0-31.0)
MCHC 31.9 L g/dL
(33.0-37.0)
Absolute Neuts (auto) 7.1 H 10^3/uL
(1.4-6.5)
Absolute Monos (auto) 0.8 H 10^3/uL
(0.1-0.6)
Neutrophils % 75.4 H %
(42.2-75.2)
Lymphocytes % 12.9 L %
(20.5-51.1)
Glucose 117 H mg/dl
(70-99)
AST 16 L U/L
(17-59)
11/08/24 05:58
11/08/24 05:58
Vital Signs
Initial and Last Documented VS:
Initial Vital Signs
Temp Pulse Resp BP Pulse Ox
98.7 F 133 20 137/84 95
11/08/24 05:23 11/08/24 05:23 11/08/24 05:23 11/08/24 05:23 11/08/24 05:23
Last Documented Vital Signs
Temp Pulse Resp BP Pulse Ox
98.7 F 74 20 119/82 97
11/08/24 05:23 11/08/24 07:00 11/08/24 06:15 11/08/24 07:00 11/08/24 07:00
MDM/Problems Addressed
Differential Diagnosis Includes:
HPI and MDM Narrative:
68-year-old male presenting for evaluation of A-fib. Ever since his heart attack several months ago, he has had paroxysmal A-fib. He is usually able to auto convert. It woke him up and he developed palpitations. He took an extra dose of
metoprolol. He complains of mild palpitations but denies chest pain or shortness of breath. On exam, patient is extremely well-appearing and nontoxic.
He is intermittently rate controlled. Will give dose of Cardizem as this has helped in the past and will continue to monitor.
Physical exam
General: Well appearing and non-toxic. Lying in bed comfortably
HEENT: protecting airway
Neck: appears supple
CV: No evidence of cyanosis. Irregular rate and rhythm
Resp: No accessory muscle use
Abd: Non-distended
Extremities: No deformities. No leg edema
Neuro: alert
Psych: Normal affect
Skin: Intact
Problems Addressed including Acute and Chronic Conditions affecting care:
1. Paroxysmal A-fib
Acuity: acute
Prognosis: stable
Details: Patient is rate controlled. Will give dose of IV Cardizem and attempt to chemically cardiovert
Updates
7:15 AM patient auto converted his rhythm and feeling much better. Repeat EKG confirms sinus rhythm
Differential Diagnosis (but not limited to): A-fib, hyperthyroidism, electrolyte abnormality
Testing considered: Troponin
Drug therapy (if applicable): OTC meds, please see d/c instruction regarding Rx drugs
Amount and/or Complexity of Data Reviewed
Clinical info obtained from: Patient
External data reviewed: N/A
Labs I independently reviewed (but not limited to): TSH normal
Radiology: N/A
Pulse Ox: not hypoxic
EKG independently reviewed: A-fib, normal axis, no STEMI
Collection Supervisor: A-fib
Critical Care: N/A
Risk of Complication:
Social Determinants of health: Good social support
Discussed with other providers: N/A
Escalation of Care includes Admit/Obs: After being observed in the Emergency Department, pt stable for discharge.
Occasional wrong word or 'sound a like' substitutions may have occurred due to the inherent limitations of voice recognition software. Read the chart carefully and recognize, using context, where substitutions have occurred.
*Critical Care Note
Total Time (30-74mins, 75-104mins- exclusive of procedures): Not Applicable
ED Attending Note
-
Portions of this chart may have been created with voice recognition software.� Occasional wrong word or��sound alike� substitutions may have occurred due to the inherent limitations of voice recognition software.
Discharge Plan
Departure
Patient Disposition: Home (Routine Discharge)
Date of Disposition: 11/08/24
Time of Disposition: 07:36
Patient with high blood pressure during this ER visit?: No
Discharge Problem:
A-fib
Prescriptions:
No Action
Eliquis 5 mg tablet
5 mg PO BID Qty: 60 0RF
metoprolol succinate 25 mg tablet extended release 24 hr
25 mg PO BID Qty: 60 0RF
valacyclovir 1 gram Tablet
1,000 mg PO DAILYPRN PRN (Reason: flares)
ProAir RespiClick 90 mcg/actuation Aerosol Powdr Breath Activated
1 inh INHALATION Q4H PRN (Reason: SOB/wheezing)
alprazolam 0.25 mg Tablet
0.25 mg PO Q8HPRN PRN (Reason: anxiety) 3 Days Qty: 10 0RF
metoprolol succinate 25 mg Tablet Extended Release 24 Hr
12.5 mg PO Q12 30 Days Qty: 30 0RF
potassium chloride 10 mEq Tablet,Er Particles/Crystals
10 meq PO DAILY 30 Days Qty: 30 0RF
escitalopram oxalate 5 mg Tablet
5 mg PO DAILY 30 Days Qty: 30 0RF
aspirin 81 mg Tablet,Chewable
81 mg PO DAILY Qty: 0 0RF
Mounjaro 5 mg/0.5 mL Pen Injector
5 mg SC QWEEK Qty: 0 0RF
Rx Instructions:
MONDAYS
pantoprazole 40 mg Tablet,Delayed Release (Dr/Ec)
40 mg PO DAILY AT 0700 30 Days Qty: 30 0RF
valsartan 40 mg Tablet
20 mg PO DAILY AT 0700 30 Days Qty: 15 0RF
furosemide 40 mg Tablet
40 mg PO DAILY 30 Days Qty: 30 0RF
atorvastatin 40 mg Tablet
40 mg PO HS 30 Days Qty: 30 0RF
clopidogrel [Plavix] 75 mg Tablet
75 mg PO DAILY 30 Days Qty: 30 0RF
zolpidem 10 mg Tablet
10 mg PO HS 30 Days Qty: 30 0RF
Referrals:
Nasir Beasley MD [Family Provider] -
Activity Restrictions/Additional Instructions:
Please return for any worsening symptoms.
You may return at any time if you have further concerns.
Please follow up with your doctor at the first available appointment, preferably this week.
Thank you for choosing [facility].
Interventions
Interventions:
*Risk Screen - Suicide Last Done: 11/08/24 05:23
*General Assessment Last Done: 11/08/24 05:23
*Neglect/Abuse Screening Last Done: 11/08/24 05:23
ED- Fall Risk Assessment Last Done: 11/08/24 05:23
*ED COVID-19 Vaccine History Last Done: 11/08/24 05:23
ED- Cardiac Assessment Last Done: 11/08/24 05:42
ED- Pulmonary Assessment Last Done: 11/08/24 05:42
Discharge Date and Time
Print Language: MOLDOVAN
[2024-11-08 06:29] LABS: % Basophils 0.2 % (0-2); % Eosinophils 2.7 % (0-6); % Immature Granulocytes 0.4 % (0-0.5); % Lymphocytes 12.9 % (20.5-51.1); % Monocytes 8.4 % (1.7-9.3); % Neutrophils 75.4 % (42.2-75.2); Absolute Eosinophils 0.3 10^3/uL (0-0.7); Absolute Lymphocytes 1.2 10^3/uL (1.2-3.4); Absolute Monocytes 0.8 10^3/uL (0.1-0.6); Absolute Neutrophils 7.1 10^3/uL (1.4-6.5); Hematocrit 39.2 % (39.0-52.0); Hemoglobin 12.5 g/dL (13.0-18.0); Mean Corp Hgb Conc. 31.9 g/dL (33.0-37.0); Mean Corpuscular Hgb 26.9 pg (27.0-31.0); Mean Corpuscular Volume 84.3 fL (80.0-94.0); Nucleated Red Blood Cells % 0 % (-); Platelet Count 274 10^3/uL (130-400); Red Blood Cell Count 4.65 10^6/uL (4.70-6.10); Red Cell Dist. Width 14.1 % (11.5-14.5); White Blood Cell Count 9.4 10^3/uL (4.8-10.8)
[2024-11-08] MEDS: NSS 1000 IV (06:30)
[2024-11-08 06:31] VITALS: BP 130/87
[2024-11-08] MEDS: CARDIZEM 10 MG IV (06:31)
[2024-11-08 06:46] LABS: ALT (SGPT) 14 U/L (0-50); AST (SGOT) 16 U/L (17-59); Albumin 4.2 g/dl (3.5-5.0); Alkaline Phosphatase 74 U/L (38-126); Blood Urea Nitrogen 19 mg/dl (9-20); Calcium 9.9 mg/dl (8.4-10.2); Carbon Dioxide 23 mmol/L (22-30); Chloride 105 mmol/L (98-107); Estimated Creatinine Clearance 93 ml/min; Glucose 117 mg/dl (70-99); Potassium 3.6 mmol/L (3.5-5.1); Sodium 140 mmol/L (135-145); Total Bilirubin 1.2 mg/dl (0.2-1.3); Total Protein 6.4 g/dl (6.3-8.2); eGFR > 60.00
[2024-11-08 07:00] VITALS: BP 119/82
[2024-11-08 07:15] LABS: TSH 1.68 uIU/ml (0.47-4.68)
== END 2024-11-08 07:56 | disposition home or self-care (01) ==
LOC: EMR 05:15
PROVIDERS: Student in an Organized Health Care Education/Training Program; EMERGENCY PHYSICIAN Student in an Organized Health Care Education/Training Program; FAMILY PHYSICIAN Student in an Organized Health Care Education/Training Program
DX: I48.91 Unspecified atrial fibrillation (principal); I25.10 Atherosclerotic heart disease of native coronary artery without angina pectoris; Z79.899 Other long term (current) drug therapy
CPT/HCPCS: 96374; 96361; 99284; 80053; 84443; 85025; 93005

== ENCOUNTER 2024-11-26 18:23 | Emergency (ER) | payer MEDICARE, OTHER, SELFPAY ==
[2024-11-26 18:30] VITALS: BP 157/86
[2024-11-26 18:52] LABS: % Basophils 0.3 % (0-2); % Eosinophils 4.7 % (0-6); % Immature Granulocytes 0.7 % (0-0.5); % Lymphocytes 20.4 % (20.5-51.1); % Monocytes 8.3 % (1.7-9.3); % Neutrophils 65.6 % (42.2-75.2); Absolute Eosinophils 0.3 10^3/uL (0-0.7); Absolute Immature Granulocytes 0.1 10^3/uL (0-0.05); Absolute Lymphocytes 1.5 10^3/uL (1.2-3.4); Absolute Monocytes 0.6 10^3/uL (0.1-0.6); Absolute Neutrophils 4.8 10^3/uL (1.4-6.5); Hematocrit 39.3 % (39.0-52.0); Hemoglobin 12.5 g/dL (13.0-18.0); Mean Corp Hgb Conc. 31.8 g/dL (33.0-37.0); Mean Corpuscular Volume 81.9 fL (80.0-94.0); Mean Platelet Volume 9.8 fL (7.4-10.4); Nucleated Red Blood Cells % 0 % (-); Platelet Count 290 10^3/uL (130-400); Red Cell Dist. Width 14.6 % (11.5-14.5); White Blood Cell Count 7.3 10^3/uL (4.8-10.8)
[2024-11-26 19:08] LABS: ALT (SGPT) 11 U/L (0-50); AST (SGOT) 14 U/L (17-59); Albumin 4.4 g/dl (3.5-5.0); Alkaline Phosphatase 74 U/L (38-126); Blood Urea Nitrogen 16 mg/dl (9-20); Calcium 9.5 mg/dl (8.4-10.2); Carbon Dioxide 24 mmol/L (22-30); Chloride 103 mmol/L (98-107); Glucose 133 mg/dl (70-99); Potassium 3.6 mmol/L (3.5-5.1); Sodium 136 mmol/L (135-145); Total Bilirubin 1.4 mg/dl (0.2-1.3); Total Protein 6.6 g/dl (6.3-8.2); eGFR > 60.00
--- NOTE | 2024-11-26 20:08 | ED.GENMED ---
History of Present Illness
General
Chief Complaint: Heart Rate Problem
Time Seen by Provider: 11/26/24 20:08
History of Present Illness
History of Present Illness:
TIME OF INITIAL ENCOUNTER: 8:10 PM
HPI: The patient had a heart attack/cardiac arrest several months ago and reportedly has had paroxysmal A-fib since that time. Today he had a general uneasy feeling and was not sure if he was in A-fib or not. He had no chest pain. He has an
ablation coming up soon. wonders if there could be an anxiety component as well. The patient does not feel dehydrated.
EXAM:
GENERAL: Well appearing in no distress
HEENT: Moist oral mucosa
CARDIOVASCULAR: No murmurs, normal heart rate, regular rhythm, No chest wall tenderness, ectopy noted
PULMONARY: No respiratory distress, breath sounds are clear and equal
ABDOMEN: Soft with no peritoneal signs, no tenderness
NEUROLOGIC: Excellent strength all extremities, no coordination deficits
PSYCHIATRIC: Appropriate mental status, normal insight and judgement
EXTREMITIES: Nontender, no edema, moves all extremities equally
SKIN: No rash, no lesions
NUMBER AND COMPLEXITY OF PROBLEMS ADDRESSED AT THE ENCOUNTER
� Chronic conditions affecting care: Atrial fibrillation, has had cardiac arrest, UT with coronary stents, diabetes
� Acute Exacerbation and/or Progression of Chronic Illness: This is an acute problem
� Differential Diagnosis includes: Electrolyte abnormality, atrial fibrillation, PVCs, PACs, dehydration
AMOUNT AND/OR COMPLEXITY OF DATA TO BE REVIEWED AND ANALYZED
� I performed an independent evaluation of and my interpretation is:
EKG: Sinus 81, left axis deviation, minimal ST elevation noted in V1 V2 comparable to last month
CT:
X-rays:
Laboratory Studies: White count 7.3, hemoglobin 12.5, chemistries unremarkable
Other:
� Review of other/old record: The patient has had several ED visits related to atrial fibrillation over the last couple of months
� Clinical information was obtained by an independent historian: I spoke to the who is an ICU nurse at bedside I reviewed
� Prescriptions/Medications Considered but not given: Offered and considered IV fluids however the patient states that he does not feel dehydrated
� Further testing considered but not performed:
RISK OF COMPLICATIONS AND/OR MORBIDITY OR MORTALITY OF PATIENT MANAGEMENT
� Social determinants of health affecting care: Lives at home
� Discussion with other providers:
� Escalation of care including admission/observation vs risk of discharge considered: PVCs were noted on the monitor. We talked about may be taking an extra dose of metoprolol when he has the symptoms. He will follow-up with
his customer relations representative. He has an ablation scheduled soon. He remains in a sinus rhythm in the emergency department.
ANY OTHER UPDATES:
Past History
Past History
ED Past Medical History: Arrthythmia and CAD
ED Past Surgical History: Cardiac
Social History
Tobacco: Non-smoker
Alcohol: None
Phy Exam
Physical Exam
Physical Exam:
See HPI
Course
Orders/Labs/Results
Orders:
Orders
11/26/24 18:25
EKG [Electrocardiogram (*1)] Urgent
Reason for Study: Atrial Fibrillation
11/26/24 18:26
EKG- Treatment ONCE
11/26/24 18:42
Complete Blood Count/With Diff Urgent
Comprehensive Metabolic Panel Urgent
Abnormal Lab Results
11/26/24
18:42
Hgb 12.5 L g/dL
(13.0-18.0)
MCH 26.0 L pg
(27.0-31.0)
MCHC 31.8 L g/dL
(33.0-37.0)
RDW 14.6 H %
(11.5-14.5)
Abs Immat Gran (auto) 0.1 H 10^3/uL
(0-0.05)
Immature Gran % 0.7 H %
(0-0.5)
Lymphocytes % 20.4 L %
(20.5-51.1)
Glucose 133 H mg/dl
(70-99)
Total Bilirubin 1.4 H mg/dl
(0.2-1.3)
AST 14 L U/L
(17-59)
11/26/24 18:42
11/26/24 18:42
Vital Signs
Initial and Last Documented VS:
Initial Vital Signs
Temp Pulse Resp BP Pulse Ox
37.2 C 80 20 157/86 97
11/26/24 18:30 11/26/24 18:30 11/26/24 18:30 11/26/24 18:30 11/26/24 18:30
Last Documented Vital Signs
Temp Pulse Resp BP Pulse Ox
37.2 C 84 20 146/95 97
11/26/24 18:30 11/26/24 20:12 11/26/24 20:12 11/26/24 20:12 11/26/24 20:12
*Critical Care Note
Total Time (30-74mins, 75-104mins- exclusive of procedures): Not Applicable
ED Attending Note
-
Portions of this chart may have been created with voice recognition software.� Occasional wrong word or��sound alike� substitutions may have occurred due to the inherent limitations of voice recognition software.
Discharge Plan
Departure
Patient Disposition: Home (Routine Discharge)
Date of Disposition: 11/26/24
Time of Disposition: 20:18
Patient with high blood pressure during this ER visit?: Yes
Discharge Problem:
Palpitations
Instructions: Palpitations (DC), BLOOD PRESSURE
Prescriptions:
No Action
Eliquis 5 mg tablet
5 mg PO BID Qty: 60 0RF
metoprolol succinate 25 mg tablet extended release 24 hr
25 mg PO BID Qty: 60 0RF
valacyclovir 1 gram Tablet
1,000 mg PO DAILYPRN PRN (Reason: flares)
ProAir RespiClick 90 mcg/actuation Aerosol Powdr Breath Activated
1 inh INHALATION Q4H PRN (Reason: SOB/wheezing)
alprazolam 0.25 mg Tablet
0.25 mg PO Q8HPRN PRN (Reason: anxiety) 3 Days Qty: 10 0RF
metoprolol succinate 25 mg Tablet Extended Release 24 Hr
12.5 mg PO Q12 30 Days Qty: 30 0RF
potassium chloride 10 mEq Tablet,Er Particles/Crystals
10 meq PO DAILY 30 Days Qty: 30 0RF
escitalopram oxalate 5 mg Tablet
5 mg PO DAILY 30 Days Qty: 30 0RF
aspirin 81 mg Tablet,Chewable
81 mg PO DAILY Qty: 0 0RF
Mounjaro 5 mg/0.5 mL Pen Injector
5 mg SC QWEEK Qty: 0 0RF
Rx Instructions:
MONDAYS
pantoprazole 40 mg Tablet,Delayed Release (Dr/Ec)
40 mg PO DAILY AT 0700 30 Days Qty: 30 0RF
valsartan 40 mg Tablet
20 mg PO DAILY AT 0700 30 Days Qty: 15 0RF
furosemide 40 mg Tablet
40 mg PO DAILY 30 Days Qty: 30 0RF
atorvastatin 40 mg Tablet
40 mg PO HS 30 Days Qty: 30 0RF
clopidogrel [Plavix] 75 mg Tablet
75 mg PO DAILY 30 Days Qty: 30 0RF
zolpidem 10 mg Tablet
10 mg PO HS 30 Days Qty: 30 0RF
Activity Restrictions/Additional Instructions:
On the lunchroom monitor, you are in a normal sinus rhythm. However I do see rather frequent PVCs occurring about twice a minute. Follow-up with your customer relations representative. Return here if worse or other concerns.
Interventions
Interventions:
*Risk Screen - Suicide Last Done: 11/26/24 18:30
*General Assessment Last Done: 11/26/24 18:30
*Neglect/Abuse Screening Last Done: 11/26/24 18:30
ED- Cardiac Assessment Last Done: 11/26/24 20:12
ED- Pulmonary Assessment Last Done: 11/26/24 20:12
Discharge Date and Time
Print Language: SWEDISH
[2024-11-26 20:12] VITALS: BP 146/95
== END 2024-11-26 20:32 | disposition home or self-care (01) ==
LOC: EMR 18:23
PROVIDERS: Student in an Organized Health Care Education/Training Program; EMERGENCY PHYSICIAN Emergency Medicine; FAMILY PHYSICIAN Family Medicine
DX: R00.2 Palpitations (principal); R03.0 Elevated blood-pressure reading, without diagnosis of hypertension
CPT/HCPCS: 99284; 80053; 85025; 93005

== ENCOUNTER 2024-12-09 06:15 | Day surgery (SDC) | payer MEDICARE, OTHER, SELFPAY ==
[2024-11-27 08:54] VITALS: BMI 32.5
[2024-12-09] VITALS (9 sets, daily range): BP systolic 101–145; BP diastolic 71–88; BMI 31.9
[2024-12-09 06:58] LABS: Glucose - Point of Care 73 mg/dl (70-99)
[2024-12-09 09:24] LABS: ACT-LR - POC 289 Seconds (116-155)
[2024-12-09 10:28] LABS: Glucose - Point of Care 131 mg/dl (70-99)
--- NOTE | 2024-12-09 10:45 | ITS.CL.ABL ---
Drum Handler - Ablation
Ablation
Procedure Report:
AFIB / A flutter ablation:
Mr. Andino is a very pleasant 69 yr old gentleman with medical history significant for symptomatic paroxysmal atrial fibrillation and atrial flutter is here in the EP lab for atrial fibrillation / flutter ablation
Date of Procedure:
12/09/2024
Indications:
Symptomatic persistent atrial fibrillation / atrial flutter
Pre-Operative Diagnosis:
Persistent atrial fibrillation / atrial flutter
Post-Operative Diagnosis:
Persistent atrial fibrillation / atrial flutter
Procedure Performed:
Atrial fibrillation ablation with wide area circumferential ablation (WACA) approach for pulmonary vein isolation
Atrial flutter ablation with cavo-tricuspid isthmus line block formation
Roof dependent atrial flutter ablation with line of block at the left atrial roof.
Performing Physician:
Kathleen Rolon MD
Assistants:
EP staff
Anesthesia:
See anesthesia records
Detailed Description of the Procedure:
Written informed consent was obtained from the patient after a full explanation of the risks and benefits of the procedure including the risks of sedation and anesthesia.
The patient was brought to the electrophysiology laboratory in stable condition in fasting state. Continuous electrocardiographic and hemodynamic monitoring was initiated.
The initial rhythm was sinus.
The procedure site was meticulously prepared with surgical scrub and allowed to dry with no pooling. Sterile draping was applied to cover the procedure site. The image intensifier was draped with sterile bag and positioned over the patient. After
infusion of local anesthetic, vascular access was obtained under ultrasound guidance and sheaths were placed over guide wire as detailed below.
The images of the ultrasound of the femoral vessels were stored in patient chart.
Sheath and Catheter Placement:
In the right femoral vein, an 8-Algerian sheath was placed under ultrasound guidance for use during the ablation procedure. And mapping catheter was intermittently placed in the high right atrium, right ventricle, left atrium and left ventricle. In
the left femoral vein, a 9-Fr long sheath was placed for use during intracardiac echo procedure.
The sheaths were upgraded as needed during the case. Intracardiac catheters were positioned using direct fluoroscopic guidance.� ICE catheter was placed in RA. The following catheters / sheaths were placed
Sheaths:
��������� Agilis sheath in right femoral vein upgraded from 8Fr in right femoral vein
��������� 9Fr in left femoral vein
Catheters:
��������� The Affera Sphere 9 catheter -bidirectional D/F� - at locations of HRA, RV, LA and LV.
��������� ICE catheter -AccuNav -� at locations of RA, SVC, and RV.
��������� Bard decapolar catheter � RA and CS
Heparin was initiated after the access was obtained.
Intracardiac ECHO:
An 8-Algerian AcuNav intracardiac ECHO (ICE) probe was advanced through the 9-Algerian sheath in the left femoral vein into the right atrium under fluoroscopic and ICE ultrasound image guidance and a baseline ECHO study was performed. The left atrial
size was dilated. There was trace tricuspid regurgitation. The aortic valve was grossly normal. There was normal left ventricular size and function. There is no pericardial effusion. The VIRI has baseline low velocities. The pulmonary had good flow
identified.
During the procedure, ICE was used for monitoring of complications, guidance of trans-septal puncture, monitor the catheter position and tracking ablation lesions. No change in the pericardial space noted throughout the procedure.
Electroanatomic mapping of the right atrium:
A J-tipped guidewire was advanced through the 8-Algerian sheath in the right femoral vein into the superior vena cava under fluoroscopic and ICE guidance. The 8-Algerian sheath was exchanged for an Agilis sheath which was advanced into the superior vena
cava.
Using the Sphere 9 Affera catheter advanced through Agilis sheath into the right atrium, an electroanatomic map (EAM) of the right atrium was created using the Keraderma� mapping system with [employer] software mapping system.
There was borderline long HV conduction noted at baseline at 45 ms.
Ablation # 1: Typical Atrial Flutter Ablation:
The CTI ablation was done using radiofrequency with Affera sphere -9 ablation, open irrigation, force-sensing bidirectional ablation catheter in the cavotricuspid isthmus from the tricuspid annulus to the IVC ridge. Once the ablation catheter reach
near the IVC, the ablation energy was changed to pulsefield.
��������������� -Bidirectional block was confirmed across the CTI line with differential pacing.
��������������� -Double potentials were spaced greater than 98 msec apart.
��������������� -The conduction time across the CTI line from proximal CS pacing was 145 msec.
��������������� -EAM of the right atrium was obtained with coronary sinus pacing and showed a line of block at the CTI.
��������������� -The time interval just lateral to the ablation lesions was 145 msec and the lateral wall was 112 msec
��������������� - All these maneuvers confirmed the block at the CTI line.
- Post ablation HV interval was unchanged at 45msec
Then attention was given to atrial fibrillation ablation.
Trans-septal Puncture:
Heparin was initiated and infused to maintain appropriate ACT. A J-tipped guidewire was advanced through into the superior vena cava under fluoroscopic and ICE guidance. The Agilis sheath was advanced into the superior vena cava. A BRK needle was
advanced inside the Agilis sheath. The apparatus was withdrawn until it was in contact with the fossa ovalis. The position was adjusted based on fluoroscopy and ultrasound images from ICE. Under fluoroscopic, hemodynamic and ICE ultrasound guidance,
left atrium was cannulated by advancing the needle. Once atrial septum was cannulated, the needle was pulled back and the guide wire was advanced through the needle into the left atrium. The guide wire was advanced into the left superior pulmonary
vein. Both the sheath and the dilator was advanced into the left atrium. The dilator with the needle was withdrawn. Blood was aspirated from the Agilis sheath and arterial blood confirmed. The sheath was flushed. Saline injection noted into the left
atrium on ICE. The waveform of the LA pressure was recorded. The mapping catheter was advanced in the Agilis sheath into the left pulmonary vein.
3D Electroanatomic Mapping:
Using the Sphere 9 Affera catheter advanced through Agilis sheath into the left atrium, an electroanatomic map (EAM) of the left atrium was created using Keraderma� mapping system with [employer] software. The map was used for localization of catheter
position and tacking of ablation lesions. The EAM of the left atrium showed a total of 4 PVs with two left and the two right sided pulmonary veins with all electrically connected to the body the LA. It showed no significant scar in the LA. The LA
was dilated in size.
Following the EAM, preparation were made for ablation.
Ablation:
Ablation # 2: Pulmonary vein Isolation:
Pulsed field ablation was performed using an open irrigation, bidirectional, contact sensing, dual energy ablation catheter (Keraderma sphere -9) by completing the circumferential lesions around the left and right pulmonary veins achieving pulmonary
vein isolation.
Confirmation of the PVI and bidirectional block:
Following achievement of entrance block at the pulmonary veins, pacing from the Sphere 9 affera catheter in each of the four veins at 20 milliamps for 4 milliseconds showed entrance and exit block.
The LA was mapped with The Keraderma� mapping system with [employer] software in sinus rhythm confirming the line of block at the ablation lesions lines.
There was fractionation and delay noted at the roof and Aflutter was seen but was short lived to be mapped but appeared left atrial in origin.
�Ablation # 2: Roof line Formation:
There was a clear channel of electrical activity left in the posterior wall with multiple CFAE and AF areas on the roof and ablation in that area increased the risk of atrial flutter and decision was made to create a roof line to block a slow
conduction. A set of pulsed field ablations were placed on the roof line connecting the left superior pulmonary vein ablation lesions to the right superior pulmonary vein lesions rings.
The LA was mapped indicating the block in the roof with propagation of electric wave from floor to the roof in the posterior wall.
EP study:
Sinus Node Function: The sinus node functions are within acceptable normal range.
Atrioventricular Des Function: �Post ablation HV interval was unchanged at 45 msec
Procedure End
ICE study was done again that showed no epicardial accumulation. No complications noted.
Following the completion of the EP study, catheters were removed. The sheaths were removed and hemostasis achieved with VASCADE and manual compression after acceptable ACT is achieved.
Left atrial Pressure:
Pre-Procedure: Mean LA pressure was 23mmHg
Post-Procedure: Mean RA pressure was 27mmHg with severe tricuspid regurgitation and V waves.
Estimated Blood loss:
<10 cc
Specimens Removed:
None.
Implants / Devices:
None
Urine output:
None
Packs / Drains/ Tubes:
None
Instrument / Sponge Count Correct:
Yes
Complications of the Procedure:
None
Condition of Patient at Time of Transfer:
Hemodynamically stable with no neurological or vascular compromise.
Summary:
��������� Successful atrial fibrillation ablation with circumferential bidirectional line of block at pulmonary venin antra (Pulmonary vein isolation), atrial flutter ablation with cavo-tricuspid isthmus line block formation, and roof dependent
flutter ablation
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 For future cases, consider antithrombin concentrate.
Figures from the Procedure:
Figure 1: The electroanatomic mapping (EAM) of the left atrium with bipolar voltage (purple indicates normal electrical activity with red as no myocardial muscle electric activity indicating a line of block or scar.
[2024-12-09] MEDS: TORADOL 15 MG IV (11:02)
--- NOTE | 2024-12-09 12:40 | PTCARENOTE ---
Pt with c/o persistent SOB since procedure, at first he thought it was just like what he was having at home for the past month but now thinks it is not resolving as quickly, lung sounds clear bilat, O2 at running 93-96% on room air, Millicent MAGAÑA
informed
[2024-12-09] MEDS: LASIX 20 MG IV (12:54)
[2024-12-09 13:36] LABS: ACT-LR - POC 289 Seconds (116-155)
[2024-12-09 13:36] LABS: ACT-LR - POC 289 Seconds (116-155)
[2024-12-09 13:36] LABS: ACT-LR - POC 318 Seconds (116-155)
[2024-12-09 13:36] LABS: ACT-LR - POC 355 Seconds (116-155)
[2024-12-09 13:36] LABS: ACT-LR - POC 279 Seconds (116-155)
--- NOTE | 2024-12-09 13:52 | W.PN.UPDATE ---
Update Note
Progress Note Update
Pt seen post PFA/Flutter RFA. Right groin site with vascade closure, no ht/bleeding, non tender. OOB ambulating, urinating without difficulty. Post EKG NSR 80s, no acute changes. Resume eliquis tonight at usual time. Will continue uninterrupted
plavix due to recent coronary stenting 08/2024. Dyspnea and O2 sats down to low 90s in recovery, moderate bilateral congestion on exam. Lasix 20mg IV given with good diuretic effect and improved breathing with increased SaO2 up to 98% on room air.
He does not take lasix daily at home, only if needed. Instructed to take one dose in AM and then resume PRN status. Followup at [facility] as scheduled. Home today if groin site/tele remain stable.
== END 2024-12-09 14:03 | disposition home or self-care (01) ==
LOC: CATH 06:15
PROVIDERS: ATTENDING PHYSICIAN Internal Medicine Cardiovascular Disease; FAMILY PHYSICIAN Family Medicine; OTHER PHYSICIAN Student in an Organized Health Care Education/Training Program
DX: I48.19 Other persistent atrial fibrillation (principal); I48.92 Unspecified atrial flutter; I25.2 Old myocardial infarction; Z79.01 Long term (current) use of anticoagulants; Z79.899 Other long term (current) drug therapy; Z79.02 Long term (current) use of antithrombotics/antiplatelets; I25.10 Atherosclerotic heart disease of native coronary artery without angina pectoris
CPT/HCPCS: C1769; C1730; C1766; C1894; C1892; C1759; C1733; 82962; 85347; 86850; 86900; 86901; 93005; 93655; 93656

== ENCOUNTER → 2024-12-11 13:02 | Outpatient (REF) | payer MEDICARE, OTHER, SELFPAY | LOC: RAD 13:02 | PROVIDERS: ATTENDING PHYSICIAN Internal Medicine Geriatric Medicine; FAMILY PHYSICIAN Family Medicine | DX: R06.02 Shortness of breath (principal) | CPT/HCPCS: 71046 ==

== ENCOUNTER → 2024-12-12 10:19 | Outpatient (REF) | payer MEDICARE, OTHER, SELFPAY ==
[2024-12-12 11:05] LABS: % Basophils 0.2 % (0-2); % Eosinophils 3.9 % (0-6); % Immature Granulocytes 1.4 % (0-0.5); % Lymphocytes 13.3 % (20.5-51.1); % Monocytes 8.1 % (1.7-9.3); % Neutrophils 73.1 % (42.2-75.2); Absolute Eosinophils 0.4 10^3/uL (0-0.7); Absolute Immature Granulocytes 0.1 10^3/uL (0-0.05); Absolute Lymphocytes 1.3 10^3/uL (1.2-3.4); Absolute Monocytes 0.8 10^3/uL (0.1-0.6); Absolute Neutrophils 7.1 10^3/uL (1.4-6.5); Hematocrit 37.7 % (39.0-52.0); Hemoglobin 11.9 g/dL (13.0-18.0); Mean Corp Hgb Conc. 31.6 g/dL (33.0-37.0); Mean Corpuscular Volume 82.3 fL (80.0-94.0); Mean Platelet Volume 10.1 fL (7.4-10.4); Nucleated Red Blood Cells % 0 % (-); Platelet Count 262 10^3/uL (130-400); Red Blood Cell Count 4.58 10^6/uL (4.70-6.10); White Blood Cell Count 9.7 10^3/uL (4.8-10.8)
[2024-12-12 11:18] LABS: ALT (SGPT) 16 U/L (0-50); AST (SGOT) 18 U/L (17-59); Albumin 4.1 g/dl (3.5-5.0); Alkaline Phosphatase 72 U/L (38-126); Blood Urea Nitrogen 18 mg/dl (9-20); Calcium 9.5 mg/dl (8.4-10.2); Carbon Dioxide 28 mmol/L (22-30); Chloride 106 mmol/L (98-107); Glucose 121 mg/dl (70-99); Potassium 3.7 mmol/L (3.5-5.1); Sodium 140 mmol/L (135-145); Total Bilirubin 1.6 mg/dl (0.2-1.3); Total Protein 6.3 g/dl (6.3-8.2); eGFR > 60.00
[2024-12-12 11:27] LABS: NT-proBNP 3200 pg/ml
== END ==
LOC: REG 10:19
PROVIDERS: ATTENDING PHYSICIAN Family Medicine
DX: R14.0 Abdominal distension (gaseous) (principal); I50.41 Acute combined systolic (congestive) and diastolic (congestive) heart failure
CPT/HCPCS: 36415; 80053; 83880; 85025

== ENCOUNTER → 2024-12-18 08:49 | Outpatient (REF) | payer MEDICARE, OTHER, SELFPAY ==
[2024-12-18 10:42] LABS: Blood Urea Nitrogen 25 mg/dl (9-20); Calcium 9.7 mg/dl (8.4-10.2); Carbon Dioxide 29 mmol/L (22-30); Chloride 103 mmol/L (98-107); Glucose 138 mg/dl (70-99); Potassium 3.8 mmol/L (3.5-5.1); Sodium 140 mmol/L (135-145); eGFR > 60.00
== END ==
LOC: REG 08:49
PROVIDERS: ATTENDING PHYSICIAN Family Medicine
DX: I50.32 Chronic diastolic (congestive) heart failure (principal); E78.2 Mixed hyperlipidemia
CPT/HCPCS: 36415; 80048

== ENCOUNTER → 2024-12-23 08:33 | Outpatient (REF) | payer MEDICARE, OTHER, SELFPAY | LOC: RCS 08:33 | PROVIDERS: ATTENDING PHYSICIAN Student in an Organized Health Care Education/Training Program; FAMILY PHYSICIAN Family Medicine | DX: I25.10 Atherosclerotic heart disease of native coronary artery without angina pectoris (principal); R06.09 Other forms of dyspnea | CPT/HCPCS: 93306 ==

== ENCOUNTER → 2025-04-14 07:03 | Outpatient (REF) | payer MEDICARE, OTHER, SELFPAY | LOC: EMG 07:03 | PROVIDERS: ATTENDING PHYSICIAN Nurse Practitioner Family | DX: R20.2 Paresthesia of skin (principal); Z87.891 Personal history of nicotine dependence; R04.2 Hemoptysis; R20.0 Anesthesia of skin | CPT/HCPCS: 71250; 95886; 95909 ==

== ENCOUNTER 2025-05-20 15:39 | Emergency (ER) | payer MEDICARE, OTHER, SELFPAY ==
[2025-05-20 15:46] VITALS: BP 144/86
[2025-05-20 16:10] LABS: Hematocrit 48.6 % (39.0-52.0); Hemoglobin 16.2 g/dL (13.0-18.0); Mean Corp Hgb Conc. 33.3 g/dL (33.0-37.0); Mean Corpuscular Volume 82.1 fL (80.0-94.0); Nucleated Red Blood Cells % 0 % (-); Platelet Count 303 10^3/uL (130-400); Red Cell Dist. Width 15.3 % (11.5-14.5); Urine Character Clear (Clear)
[2025-05-20 16:15] LABS: Urine Red Blood Cell 0-2 /HPF (0-2)
[2025-05-20 16:33] LABS: ALT (SGPT) 17 U/L (0-50); AST (SGOT) 17 U/L (17-59); Albumin 5.2 g/dl (3.5-5.0); Alkaline Phosphatase 93 U/L (38-126); Blood Urea Nitrogen 19 mg/dl (9-20); Calcium 10.3 mg/dl (8.4-10.2); Carbon Dioxide 26 mmol/L (22-30); Chloride 104 mmol/L (98-107); Glucose 107 mg/dl (70-99); Lipase 88 U/L (23-300); Potassium 4.2 mmol/L (3.5-5.1); Sodium 139 mmol/L (135-145); Total Protein 8.1 g/dl (6.3-8.2); eGFR > 60.00
[2025-05-20 18:32] VITALS: BMI 33.7
[2025-05-20 18:39] VITALS: BP 134/81
--- NOTE | 2025-05-20 18:52 | EDRN ---
Pt states he has had pain for about 2 weeks ago in L lower back and LLQ. Pt had an ablation surgery in November and thought it was due to bloating post surgery w/ Lasix increased for 3 days prior to today. Saw PCP and agriculture professor. Phosphoric Acid Supervisor
thought maybe gallstones due to mass seen on a CT scan a couple of weeks ago.
--- NOTE | 2025-05-20 19:09 | ED.GENMED ---
History of Present Illness
General
Chief Complaint: Abdominal Pain
Source: patient
Exam Limitations: none
Time Seen by Provider: 05/20/25 18:57
History of Present Illness
History of Present Illness:
69-year-old male complaining of ongoing left lower back pain. Is been there about 10 days. Not obviously positional. No chest pain shortness of breath. No nausea or vomiting. No pleuritic pain. Patient is on Eliquis for atrial fibrillation.
Feels somewhat bloated in his abdomen but this is not new. Bowel movements are normal.
Past History
Past History
ED Past Medical History: Arrthythmia and CAD (Status postcardiac arrest)
ED Past Surgical History: Appendectomy and Cardiac (Cardiac ablation)
Social History
Tobacco: Non-smoker
Alcohol: None
Review of Systems
Review of Systems
All Other Systems: Not applicable
Constitutional: Denies fever or chills
Respiratory: Reports no symptoms
Cardiac: Reports no symptoms
Phy Exam
Physical Exam
Physical Exam:
GENERAL: Alert and oriented in no apparent distress
EYE: Orbits normal.
NECK: Supple, no significant adenopathy.
ENT: Pharynx without erythema
CARDIAC: Regular rate and rhythm without any obvious murmurs.
LUNGS: Clear breath sounds,normal
ABDOMEN: Soft, without focal tenderness or distention. No rebound or guarding no mass or hernia. No right upper quadrant or left upper quadrant tenderness. Patient points to his left lower back below the left costovertebral angle. Not midline
spinal. No swelling warmth erythema vesicles etc. He has no CVA tenderness.
NEUROLOGICAL: Alert and oriented , grossly non-focal
SKIN: Warm and dry, no rash or lesion, no discoloration, skin intact.
MUSCULOSKELETAL: No edema,no deformity.Good color
PSYCH: Normal and appropriate interaction.
Course
Orders/Labs/Results
Orders:
Orders
05/20/25 16:01
Complete Blood Count/With Diff Urgent
Comprehensive Metabolic Panel Urgent
Lactic Acid Urgent
Lipase Urgent
Urinalysis Reflex To Culture Urgent
Date Specimen was Collected: 05/20/25
Time Specimen was Collected: 15:50
Urine Microscopic Reflex Cult Urgent
05/20/25 19:12
EKG [Electrocardiogram (*1)] Urgent
Reason for Study: Other
Other Reason for Exam: left lower back pain
CT Abd/Pel (IV only)-DH only Urgent
Comment:
Reason For Exam: Left lower back pain
05/20/25 19:13
EKG- Treatment ONCE
05/20/25 19:46
Troponin I Urgent
Abnormal Lab Results
05/20/25
16:01
RDW 15.3 H %
(11.5-14.5)
Abs Immat Gran (auto) 0.1 H 10^3/uL
(0-0.05)
Absolute Monos (auto) 0.7 H 10^3/uL
(0.1-0.6)
Immature Gran % 0.6 H %
(0-0.5)
Glucose 107 H mg/dl
(70-99)
Calcium 10.3 H mg/dl
(8.4-10.2)
Total Bilirubin 1.9 H mg/dl
(0.2-1.3)
Albumin 5.2 H g/dl
(3.5-5.0)
Urine Bacteria (Reflex) Few A
(Negative)
Urine Albumin (Reflex) 1+ A
(Neg - Trace)
05/20/25 16:01
05/20/25 16:01
Vital Signs
Initial and Last Documented VS:
Initial Vital Signs
Temp Pulse Resp BP Pulse Ox
98.5 F 99 16 144/86 96
05/20/25 15:46 05/20/25 15:46 05/20/25 15:46 05/20/25 15:46 05/20/25 15:46
Last Documented Vital Signs
Temp Pulse Resp BP Pulse Ox
98.4 F 75 20 138/80 99
05/20/25 21:02 05/20/25 22:12 05/20/25 22:12 05/20/25 21:02 05/20/25 22:12
MDM/Problems Addressed
Differential Diagnosis Includes:
Patient with ongoing left lower back pain for 10 days. Not positional. No anterior abdominal pain no fever chills no chest pain shortness of breath. No urinary symptoms. Patient is concerned that he feels it may be related to bloating from fluid
retention although he does not have any new leg swelling shortness of breath etc. He is clinically very stable and nontoxic. His discomfort is below the left costovertebral angle. Highly highly doubt cardiac although with his significant
significant cardiac history feel EKG and troponin are warranted. CT of the chest was done recently but he needs a CT of the abdomen and pelvis to rule out retroperitoneal bleed obstructing kidney stone.
*Radiology
Radiology exam reviewed: radiology read reviewed (Renal cyst. Diverticulosis. Cholelithiasis. No acute cholecystitis)
*Pulse Oximetry
SaO2: 95
Oxygen Mode of Delivery: Room air
Patient hypoxic: no (99)
*EKG
Interpreted by ED Provider?: Yes
Interpretation: abnormal
Comparison EKG: changes noted
Heart Rate: 81
Rate: normal
Rhythm: sinus
[place]: left axis deviation
Interval: normal interval
QRS Pattern: normal QRS
Ischemia: non-specific ST changes
*Critical Care Note
Total Time (30-74mins, 75-104mins- exclusive of procedures): Not Applicable
Update Note
Update Note:
No clear explanation for patient's symptoms. He has cholelithiasis but no acute cholecystitis by CT. Normal white count. Absolutely no right upper quadrant tenderness. This is not a bandlike pain to the back. It is below the left costovertebral
angle. Highly doubt ultrasound which showed acute cholecystitis. This was discussed with the patient. Mildly elevated bilirubin but this has been chronic. Discharged to follow-up.
ED Attending Note
-
Portions of this chart may have been created with voice recognition software.� Occasional wrong word or��sound alike� substitutions may have occurred due to the inherent limitations of voice recognition software.
Discharge Plan
Departure
Patient Disposition: Home (Routine Discharge)
Date of Disposition: 05/20/25
Time of Disposition: 21:55
Patient with high blood pressure during this ER visit?: Yes
Discharge Problem:
Left lower back pain
Instructions: Back Pain
Prescriptions:
No Action
Eliquis 5 mg tablet
5 mg PO BID Qty: 60 0RF
albuterol sulfate 90 mcg/actuation Hfa Aerosol Inhaler
1 puff INHALATION Q4H PRN (Reason: SOB)
alprazolam 0.25 mg tablet
0.25 mg PO BID
metoprolol succinate 50 mg Tablet Extended Release 24 Hr
50 mg PO BID
metoprolol succinate 25 mg tablet extended release 24 hr
25 mg PO BID PRN (Reason: tachycardia)
atorvastatin 40 mg tablet
40 mg PO QPM
Mounjaro 5 mg/0.5 mL pen injector
5 mg SC MO
valacyclovir 1 gram Tablet
1,000 mg PO DAILYPRN PRN (Reason: flares)
potassium chloride 10 mEq Tablet,Er Particles/Crystals
10 meq PO DAILY 30 Days Qty: 30 0RF
pantoprazole 40 mg Tablet,Delayed Release (Dr/Ec)
40 mg PO DAILY AT 0700 30 Days Qty: 30 0RF
valsartan 40 mg Tablet
20 mg PO DAILY AT 0700 30 Days Qty: 15 0RF
clopidogrel [Plavix] 75 mg Tablet
75 mg PO DAILY 30 Days Qty: 30 0RF
zolpidem 10 mg Tablet
10 mg PO HS 30 Days Qty: 30 0RF
Referrals:
Patrica Leija DO [Family Provider, Family Practice] - Follow up in 2-3 days
Activity Restrictions/Additional Instructions:
Tylenol only for pain. Follow-up closely with your primary physician
As we discussed, return with increasing pain fever abdominal pain right upper quadrant pain vomiting or any other concerning symptoms
Interventions
Interventions:
*Risk Screen - Suicide Last Done: 05/20/25 18:33
*General Assessment Last Done: 05/20/25 18:33
*Neglect/Abuse Screening Last Done: 05/20/25 18:33
*ED- Fall Risk Assessment Last Done: 05/20/25 18:33
*ED COVID-19 Vaccine History Last Done: 05/20/25 18:33
*Nursing Disposition Last Done: 05/20/25 22:12
UF-Agzofj-Sdfhpunblm Assessment Last Done: 05/20/25 19:54
Discharge Date and Time
Discharge Date/Time: 05/20/25 22:13
Print Language: BRAZILIAN
[2025-05-20 20:24] LABS: Troponin I < 0.012 ng/ml
[2025-05-20 21:02] VITALS: BP 138/80
== END 2025-05-20 22:13 | disposition home or self-care (01) ==
LOC: EMR 15:39
PROVIDERS: Emergency Medicine; EMERGENCY PHYSICIAN Emergency Medicine; FAMILY PHYSICIAN Family Medicine
DX: K80.00 Calculus of gallbladder with acute cholecystitis without obstruction (principal); I25.10 Atherosclerotic heart disease of native coronary artery without angina pectoris; I48.91 Unspecified atrial fibrillation; Z79.01 Long term (current) use of anticoagulants; Z90.49 Acquired absence of other specified parts of digestive tract
CPT/HCPCS: 99284; 74177; 80053; 81003; 81015; 83605; 83690; 84484; 85025; 93005; Q9967

== ENCOUNTER → 2025-07-07 07:16 | Outpatient (REF) | payer MEDICARE, OTHER, SELFPAY | LOC: MRI 3T 07:16 | PROVIDERS: ATTENDING PHYSICIAN Urology; FAMILY PHYSICIAN Family Medicine | DX: R97.20 Elevated prostate specific antigen [PSA] (principal) | CPT/HCPCS: 72197; A9575 ==

== ENCOUNTER → 2025-08-19 14:15 | Outpatient (REF) | payer MEDICARE, OTHER, SELFPAY | LOC: CLAB 14:15 | PROVIDERS: ATTENDING PHYSICIAN Urology | DX: C61 Malignant neoplasm of prostate (principal) | CPT/HCPCS: 88305 ==

== ENCOUNTER → 2025-09-23 07:56 | Outpatient (REF) | payer MEDICARE, OTHER, SELFPAY | LOC: RCS 07:56 | PROVIDERS: ATTENDING PHYSICIAN Student in an Organized Health Care Education/Training Program; FAMILY PHYSICIAN Family Medicine | DX: I25.5 Ischemic cardiomyopathy (principal) | CPT/HCPCS: 93306 ==